=== PATIENT | female | born 1960 | race Caucasian/White ===

== ENCOUNTER 2019-02-17 14:41 | Observation (INO) | payer OTHER ==
[2019-02-17] MEDS ORDERED: ONDANSETRON 4 MG/2 ML VIAL IVP STA (14:53)
[2019-02-17] MEDS ORDERED: MORPHINE SULFATE 4 MG/ML SYRINGE IV STA (14:53)
--- NOTE | 2019-02-17 15:13 | ED ---
Abdominal Pain HPI - General Chief Complaint: Abdominal Pain Stated Complaint: Ascites Time Seen by Provider: 02/17/19 14:42 Source: patient, EMS, RN notes reviewed Mode of arrival: ambulatory Limitations: no limitations - History of Present Illness Initial Comments: 58-year-old female presents emergency dept via EMS chief complaint abdominal pain, swelling. Patient has liver cirrhosis from alcohol abuse. Patient was diagnosed in July. Patient has had paracentesis in the past. Patient states that she's had increase in swelling, weight gain. Patient states pain is unbearable. Patient states that she sees terrible flank. Patient denies any fe vers, chills, chest pain or dyspnea at this time she does admit that she felt short of breath yesterday. She has significant leg swelling. - Related Data Allergies Allergy/AdvReac Type Severity Reaction Status Date / Time No Known Allergies Allergy Verified 02/17/19 14:49 Review of Systems ROS Statement: Those systems with pertinent positive or pertinent negative responses have been documented in the HPI. ROS Other: All systems not noted in ROS Statement are negative. Past Medical History Past Medical History: COPD, Liver Disease Additional Past Medical History / Comment(s): Panceatitis History of Any Multi-Drug Resistant Organisms: None Reported Past Surgical History: Section, Orthopedic Surgery Past Psychological History: No Psychological Hx Reported Smoking Status: Current every day smoker Past Alcohol Use History: None Reported Past Drug Use History: None Reported General Exam Limitations: no limitations General appearance: alert, in no apparent distress Head exam: Present: atraumatic, normocephalic, normal inspection Eye exam: Present: normal appearance, PERRL, EOMI. Absent: scleral icterus, conjunctival injection, periorbital swelling Respiratory exam: Present: normal lung sounds bilaterally. Absent: respiratory distress, wheezes, rales, rhonchi, stridor Cardiovascular Exam: Present: regular rate, normal rhythm, normal heart sounds. Absent: systolic murmur, diastolic murmur, rubs, gallop, clicks GI/Abdominal exam: Present: soft, distended, tenderness, normal bowel sounds. Absent: guarding, rebound, rigid Extremities exam: Present: pedal edema Skin exam: Present: warm, dry, intact, normal color. Absent: rash Course Vital Signs 02/17/19 14:46 Temperature 98.5 F Pulse Rate 100 Respiratory 20 Rate Blood Pressure 114/53 O2 Sat by Pulse 99 Oximetry Medical Decision Making - Medical Decision Making Patient labs reveal transaminitis consistent with alcoholic cirrhosis, hyperbilirubinemia. Patient states that this is baseline for her. She does have extensive abdominal ascites. Patient will be admitted for interventional radiologists for paracentesis, further evaluation of lung pleural effusion versus mass. - Lab Data Result diagrams: 02/17/19 15:15 02/17/19 15:15 Lab Results 02/17/19 02/17/19 02/17/19 Range/Units 15:15 15:15 15:15 WBC 7.1 (3.8-10.6) k/uL RBC 3.78 L (3.80-5.40) m/uL Hgb 12.6 (11.4-16.0) gm/dL Hct 37.3 (34.0-46.0) % MCV 98.9 (80.0-100.0) fL MCH 33.3 (25.0-35.0) pg MCHC 33.7 (31.0-37.0) g/dL RDW 14.3 (11.5-15.5) % Plt Count 333 (150-450) k/uL Neutrophils % 67 % Lymphocytes % 21 % Monocytes % 9 % Eosinophils % 1 % Basophils % 1 % Neutrophils # 4.7 (1.3-7.7) k/uL Lymphocytes # 1.5 (1.0-4.8) k/uL Monocytes # 0.6 (0-1.0) k/uL Eosinophils # 0.1 (0-0.7) k/uL Basophils # 0.1 (0-0.2) k/uL PT 15.6 H (9.0-12.0) sec INR 1.6 H (<1.2) APTT 29.6 (22.0-30.0) sec Sodium 133 L (137-145) mmol/L Potassium 4.2 (3.5-5.1) mmol/L Chloride 105 (98-107) mmol/L Carbon Dioxide 19 L (22-30) mmol/L Anion Gap 9 mmol/L BUN 8 (7-17) mg/dL Creatinine 0.61 (0.52-1.04) mg/dL Est GFR (CKD-EPI)AfAm >90 (>60 ml/min/1.73 sqM) Est GFR (CKD-EPI)NonAf >90 (>60 ml/min/1.73 sqM) Glucose 57 L (74-99) mg/dL Calcium 8.5 (8.4-10.2) mg/dL Magnesium 1.4 L (1.6-2.3) mg/dL Total Bilirubin 3.0 H (0.2-1.3) mg/dL AST 63 H (14-36) U/L ALT 25 (4-34) U/L Alkaline Phosphatase 145 H (38-126) U/L Total Protein 8.4 H (6.3-8.2) g/dL Albumin 2.5 L (3.5-5.0) g/dL Amylase 46 (30-110) U/L Lipase 74 (23-300) U/L Urine Color Urine Appearance (Clear) Urine pH (5.0-8.0) Ur Specific [place] (1.001-1.035) Urine Protein (Negative) Urine Glucose (UA) (Negative) Urine Ketones (Negative) Urine Blood (Negative) Urine Nitrite (Negative) Urine Bilirubin (Negative) Urine Urobilinogen (<2.0) mg/dL Ur Leukocyte Esterase (Negative) Urine RBC (0-5) /hpf Urine WBC (0-5) /hpf Ur Squamous Epith Cells (0-4) /hpf Urine Bacteria (None) /hpf Hyaline Casts (0-2) /lpf Urine Mucus (None) /hpf 02/17/19 Range/Units 15:15 WBC (3.8-10.6) k/uL RBC (3.80-5.40) m/uL Hgb (11.4-16.0) gm/dL Hct (34.0-46.0) % MCV (80.0-100.0) fL MCH (25.0-35.0) pg MCHC (31.0-37.0) g/dL RDW (11.5-15.5) % Plt Count (150-450) k/uL Neutrophils % % Lymphocytes % % Monocytes % % Eosinophils % % Basophils % % Neutrophils # (1.3-7.7) k/uL Lymphocytes # (1.0-4.8) k/uL Monocytes # (0-1.0) k/uL Eosinophils # (0-0.7) k/uL Basophils # (0-0.2) k/uL PT (9.0-12.0) sec INR (<1.2) APTT (22.0-30.0) sec Sodium (137-145) mmol/L Potassium (3.5-5.1) mmol/L Chloride (98-107) mmol/L Carbon Dioxide (22-30) mmol/L Anion Gap mmol/L BUN (7-17) mg/dL Creatinine (0.52-1.04) mg/dL Est GFR (CKD-EPI)AfAm (>60 ml/min/1.73 sqM) Est GFR (CKD-EPI)NonAf (>60 ml/min/1.73 sqM) Glucose (74-99) mg/dL Calcium (8.4-10.2) mg/dL Magnesium (1.6-2.3) mg/dL Total Bilirubin (0.2-1.3) mg/dL AST (14-36) U/L ALT (4-34) U/L Alkaline Phosphatase (38-126) U/L Total Protein (6.3-8.2) g/dL Albumin (3.5-5.0) g/dL Amylase (30-110) U/L Lipase (23-300) U/L Urine Color Yellow Urine Appearance Cloudy H (Clear) Urine pH 5.5 (5.0-8.0) Ur Specific [place] 1.016 (1.001-1.035) Urine Protein Trace H (Negative) Urine Glucose (UA) Negative (Negative) Urine Ketones 1+ H (Negative) Urine Blood Negative (Negative) Urine Nitrite Negative (Negative) Urine Bilirubin Negative (Negative) Urine Urobilinogen 2.0 (<2.0) mg/dL Ur Leukocyte Esterase Small H (Negative) Urine RBC 1 (0-5) /hpf Urine WBC 8 H (0-5) /hpf Ur Squamous Epith Cells 20 H (0-4) /hpf Urine Bacteria Rare H (None) /hpf Hyaline Casts 28 H (0-2) /lpf Urine Mucus Moderate H (None) /hpf Disposition Clinical Impression: Alcoholic cirrhosis of liver with ascites, Pleural effusion Disposition: ADMITTED IP TO THIS [facility] Condition: Fair Referrals: Jazlyn Donnelly MD [Primary Care Provider] - 1-2 days
--- NOTE | 2019-02-17 15:46 | XR ---
EXAMINATION TYPE: XR chest 2V DATE OF EXAM: 02/17/2019 COMPARISON: NONE HISTORY: Shortness of breath TECHNIQUE: Frontal and lateral views of the chest are obtained. FINDINGS: Scattered senescent parenchymal changes noted. Hyperinflation compatible with COPD. There is evidence of moderate size left lower lobe opacity which may reflect infiltrate and/or atelec tasis as well as pleural effusion. Underlying mass is not excluded. Clinical correlation and follow-u p until resolution is advised. Heart size is stable. Mediastinal structures are stable and grossly unremarkable. No evidence for hilar prominence. Degenerative changes dorsal spine. IMPRESSION: 1. There is evidence of moderate size left lower lobe opacity which may reflect infiltrate and/or ate lectasis as well as pleural effusion. Underlying mass is not excluded. Clinical correlation and follo w-up until resolution is advised.
[2019-02-17 16:48] LABS: Appearance,Urine Cloudy (Clear); Bacteria,Urine Rare /hpf; Bilirubin,Urine Negative (Negative); Blood,Urine Negative (Negative); Color,Urine Yellow; Glucose,Urine (UA) Negative (Negative); Hyaline Casts,Urine 28 /lpf (0-2); Ketones,Urine 1+ (Negative); Leukocyte Esterase,Urine Small (Negative); Mucus,Urine Moderate /hpf; Nitrite,Urine Negative (Negative); PH, Urine 5.5 (5.0-8.0); Protein,Urine Trace (Negative); RBC,Urine 1 /hpf (0-5); Specific Gravity,Urine 1.016 (1.001-1.035); Squamous Epithelial Cell,Urine 20 /hpf (0-4); WBC,Urine 8 /hpf (0-5)
[2019-02-17 16:51] LABS: ALT 25 U/L (4-34); AST 63 U/L (14-36); African American GFR (CKD) >90 (>60 ml/min/1.73 sqM); Albumin 2.5 g/dL (3.5-5.0); Alkaline Phosphatase 145 U/L (38-126); Amylase 46 U/L (30-110); Anion Gap 9 mmol/L; Blood Urea Nitrogen 8 mg/dL (7-17); Calcium 8.5 mg/dL (8.4-10.2); Carbon Dioxide 19 mmol/L (22-30); Chloride 105 mmol/L (98-107); Glucose 57 mg/dL (74-99); INR 1.6 (<1.2); Magnesium 1.4 mg/dL (1.6-2.3); Non-African American GFR(CKD) >90 (>60 ml/min/1.73 sqM); Partial Thromboplastin Time 29.6 sec (22.0-30.0); Potassium 4.2 mmol/L (3.5-5.1); Prothrombin Time 15.6 sec (9.0-12.0); Sodium 133 mmol/L (137-145); Total Protein 8.4 g/dL (6.3-8.2)
[2019-02-17 16:58] LABS: Basophils # (A) 0.1 k/uL (0-0.2); Basophils % (A) 1 %; Eosinophils # (A) 0.1 k/uL (0-0.7); Eosinophils % (A) 1 %; HCT 37.3 % (34.0-46.0); HGB 12.6 gm/dL (11.4-16.0); Lymphocytes # (A) 1.5 k/uL (1.0-4.8); Lymphocytes % (A) 21 %; MCH 33.3 pg (25.0-35.0); MCHC 33.7 g/dL (31.0-37.0); MCV 98.9 fL (80.0-100.0); Mean Platelet Volume 7.3; Monocytes # (A) 0.6 k/uL (0-1.0); Monocytes % (A) 9 %; Neutrophils # (A) 4.7 k/uL (1.3-7.7); Neutrophils % (A) 67 %; Platelet Count 333 k/uL (150-450); RBC 3.78 m/uL (3.80-5.40); RDW 14.3 % (11.5-15.5); WBC 7.1 k/uL (3.8-10.6)
[2019-02-17] MEDS ORDERED: NALOXONE 0.4 MG/ML 1 ML VIAL IV PRN (17:04)
[2019-02-17] MEDS ORDERED: MORPHINE SULFATE 4 MG/ML SYRINGE IV PRN (17:04)
[2019-02-17 18:02] LABS: Glucose,Whole Blood 79 mg/dL (75-99)
--- NOTE | 2019-02-17 18:14 | US ---
EXAMINATION TYPE: US chest DATE OF EXAM: 02/17/2019 COMPARISON: CLINICAL HISTORY: effusion,thoracentesis. Pleural effusion TECHNIQUE: Targeted ultrasound of the posterior lower bilateral hemithoraces EXAM MEASUREMENTS: Left Pleural Effusion pocket size: 7.0 cm Left skin surface to fluid distance: 1.4 cm Right side NOT marked for possible thoracentesis outside the dept due to no fluid visualized. Left side marked for possible thoracentesis outside the dept. Pulmonologists are able to review the images in the patient?s EMR. IMPRESSIONS: There is demonstration of a moderate-sized left pleural effusion.
[2019-02-17] MEDS ORDERED: FLUTICASONE 50MCG/SPRAY NASAL 16GM EA NOSTRIL PRN (20:38)
[2019-02-17] MEDS ORDERED: ALBUTEROL NEBULIZED 2.5 MG/3 ML INHALATION PRN (20:38)
[2019-02-17] MEDS ORDERED: ONDANSETRON 4 MG TAB PO PRN (20:38)
[2019-02-17] MEDS ORDERED: LACTULOSE 20 GM/30 ML CUP PO PRN (20:38)
[2019-02-17] MEDS: HYDROmorphone 0.5 MG/0.5 ML SYRINGE IVP PRN (22:58)
[2019-02-17] MEDS: levETIRAcetam ORAL SOLN 500 MG/5 ML CUP PO SCH (22:58)
[2019-02-18] MEDS: LIPASE 5,000/PROTEASE 17,000/AMYLASE 24,000 PO SCH ×3 (08:14→17:24)
[2019-02-18] MEDS: CLOPIDOGREL 75 MG TAB PO SCH (08:14)
[2019-02-18] MEDS: levETIRAcetam ORAL SOLN 500 MG/5 ML CUP PO SCH ×2 (08:15→20:27)
[2019-02-18] MEDS: PYRIDOXINE 50 MG TAB PO SCH (08:16)
[2019-02-18] MEDS: HYDROmorphone 0.5 MG/0.5 ML SYRINGE IVP PRN ×4 (08:16→20:26)
[2019-02-18] MEDS: PANTOPRAZOLE 40 MG TABLET PO SCH (08:16)
[2019-02-18] MEDS: MAGNESIUM OXIDE 400 MG TAB PO SCH (08:16)
[2019-02-18] MEDS: POTASSIUM CHLORIDE ER 20 MEQ TAB.ER PO SCH (08:16)
[2019-02-18] MEDS: ALBUTEROL NEBULIZED 2.5 MG/3 ML INHALATION SCH ×3 (08:42→20:48)
[2019-02-18] MEDS ORDERED: FUROSEMIDE 20 MG TAB PO SCH (09:00)
[2019-02-18] MEDS ORDERED: SPIRONOLACTONE 25 MG TAB PO SCH (09:00)
[2019-02-18] MEDS: IPRATROPIUM 0.5 MG/2.5 ML NEBU INHALATION SCH ×4 (09:01→20:48)
[2019-02-18] MEDS: FORMOTEROL FUMARATE 20 MCG/2 ML NEBU INHALATION SCH ×2 (09:01→20:48)
[2019-02-18] MEDS: IPRATROPIUM-ALBUTEROL 3 ML NEB INHALATION SCH (21:09)
[2019-02-18] MEDS ORDERED: FUROSEMIDE 80 MG TAB PO SCH (21:15)
--- NOTE | 2019-02-18 21:17 | P.HPIM ---
History of Present Illness H&P Date: 02/18/19 Chief Complaint: Distended abdomen History of presenting complaint: This is a pleasant 58-year-old patient who follows with Dr. Rosalina Donnelly. Chronic stable medical conditions include COPD, seizure disorder, coronary artery disease with a history of VT,. Patient has a diagnosis of alcohol induced cirrhosis. Follows with [facility]. Patient due to get a little stronger donor list in March. Patient was heavy alcohol drinker up to go 6 months ago. Patient now continues to smoke about less than a pack a day. Patient presents with weight gain abdominal distention edema shortness of breath. Also some wheezing. Patient's creatinine to smoke cigarettes. No fever no chills. No abdominal pain. Having bowel movements. Review of systems: GEN.: Tired EYES: None HEENT: None NECK: None RESPIRATORY: [As above CARDIOVASCULAR: None GASTROINTESTINAL: None GENITOURINARY: None MUSCULOSKELETAL: None LYMPHATICS: None HEMATOLOGICAL: None PSYCHIATRY: None NEUROLOGICAL: None Social history: Did heavy alcohol drinking close to 40 years. Stopped 6 months ago. Smoking for many years down to less than a pack a day. Lives with her daughter. Physical examination: VITAL SIGNS: 98.5, 100, 20, 11 4/53, 99% room air upon presentation GENERAL: BMI 23.5, laying in bed a bit tired., Spider nevi on the chest wall and some bruising EYES: Pupils equal. Conjunctiva palel. HEENT: External appearance of nose and ears normal, oral cavity grossly normal. NECK: JVD not raised; masses not palpable. HEART: [First and second heart sounds are normal; edema present. LUNGS: Respiratory rate increased, some wheezing decreased breath sounds at the bases. ABDOMEN: Soft, distended, dullness in the flanks nontender, liver spleen not palpable, no masses palpable. PSYCH: Alert and oriented x3; mood and affect normal. NEUROLOGICAL: Cranial nerves grossly intact; no facial asymmetry, power and sensation grossly intact. LYMPHATICS: No lymph nodes palpable in the axilla and neck INVESTIGATIONS, reviewed in the clinical context: White count 7.1 hemoglobin 12.6 platelets 333 pro time 15.6 potassium 4.2 creatinine 0.61 Total bilirubin 3 AST 63 albumin 2.5 Chest ultrasound shows left pleural effusion Chest x-ray left-sided possible pleural effusion Assessment: -Acute COPD exacerbation in a current smoker -Chronic nicotine dependence patient cigarette smoker -Sepsis cirrhosis secondary to alcoholism -Hypoalbuminemia secondary to cirrhosis -Auto anticoagulated due to cirrhosis -Ascites, large due to cirrhosis, but no respiratory compromise -Suspect underlying portal hypertension - Plan: Patient does not have tense ascites. We'll try there is in the patient. The patient Aldactone 100. Twice a day and Lasix 40 mg IV every 8 for 24 hours. Strict I's and O's. Low-sodium diet. Fluid restriction 1500 mL a day. Also start the patient on nebulized bronchodilators. Care was discussed with the patient. Questions were answered. Smoke cessation counseling: This was done with the patient. Nicotine patch is being given. More than 3 minutes was spent for this Past Medical History Past Medical History: COPD, Liver Disease, Myocardial Infarction (VT), Seizure Disorder Additional Past Medical History / Comment(s): Panceatitis, seizure (last one 11/2018), VT (11/2018), sepsis, TIA/CVA x2 (2013, nov 2018), [place], ascites, cirrhosis, liver failure transplant list in march 2019, quit drinking july 2018 (pt states she has had a problem with alcohol abuse since she was 17 years old) Last Myocardial Infarction Date:: 11/2018 History of Any Multi-Drug Resistant Organisms: None Reported Past Surgical History: Section, Heart Catheterization, Orthopedic Surgery Additional Past Surgical History / Comment(s): heart cath 11/2018, paracentesis x3 since july 2018, left arm fracture repair Past Anesthesia/Blood Transfusion Reactions: No Reported Reaction Past Psychological History: Anxiety Smoking Status: Current every day smoker Past Alcohol Use History: Abuse, Heavy Additional Past Alcohol Use History / Comment(s): quit drinking july 2018 (pt states she has had a problem with alcohol abuse since she was 17 years old) Past Drug Use History: None Reported - Past Family History Mother Family Medical History: Cancer Additional Family Medical History / Comment(s): uterine CA Father Family Medical History: Myocardial Infarction (VT) Additional Family Medical History / Comment(s): Medications and Allergies Home Medications Medication Instructions Recorded Confirmed Type Albuterol Inhaler [Ventolin Hfa 2 puff INHALATION RT-Q4H PRN 02/17/19 02/17/19 History Inhaler] Albuterol Nebulized [Ventolin 2.5 mg INHALATION RT-TID 02/17/19 02/17/19 History Nebulized] Clopidogrel [Plavix] 75 mg PO DAILY 02/17/19 02/17/19 History Fluticasone Nasal [place] [Flonase 1 spray EA NOSTRIL Q6H PRN 02/17/19 02/17/19 History Nasal [place]] Furosemide [Lasix] 20 mg PO DAILY 02/17/19 02/17/19 History Lactulose 20 gm PO BID PRN 02/17/19 02/17/19 History Lipase/Protease/Amylase [Zenpep Dr 5,000 unit PO AC-TID 02/17/19 02/17/19 History 5,000 Unit Capsule] Magnesium Oxide [Mag-Ox] 400 mg PO DAILY 02/17/19 02/17/19 History Ondansetron [Zofran] 4 - 8 mg PO BID PRN 02/17/19 02/17/19 History Pantoprazole [Protonix] 40 mg PO DAILY 02/17/19 02/17/19 History Potassium Chloride [Klor-Con 20] 20 meq PO DAILY 02/17/19 02/17/19 History Pyridoxine HCl (Vitamin B6) 100 mg PO DAILY 02/17/19 02/17/19 History [Vitamin B-6] Salmeterol Xinafoate [Serevent 1 puff INHALATION RT-BID 02/17/19 02/17/19 History Diskus] Spironolactone 50 mg PO DAILY 02/17/19 02/17/19 History Umeclidinium [place] [Incruse 1 puff INHALATION RT-DAILY 02/17/19 02/17/19 History Ellipta] levETIRAcetam [Keppra Oral 750 mg PO BID 02/17/19 02/17/19 History Solution] traMADol HCL [Ultram] 100 mg PO BID PRN 02/17/19 02/17/19 History Allergies Allergy/AdvReac Type Severity Reaction Status Date / Time No Known Allergies Allergy Verified 02/17/19 18:57 Physical Exam Vitals: Vital Signs Temp Pulse Pulse Resp BP BP Pulse Ox 02/18/19 09:22 80 02/18/19 08:56 80 02/18/19 08:55 80 02/18/19 08:45 80 02/18/19 06:29 98.0 F 105 H 20 107/65 96 02/17/19 22:44 20 02/17/19 20:23 97.7 F 94 22 138/76 98 02/17/19 18:02 98.6 F 96 20 121/58 99 02/17/19 14:46 98.5 F 100 20 114/53 99 Intake and Output 02/17/19 02/18/19 02/18/19 22:59 06:59 14:59 Other: Voiding Method Toilet # Voids 1 0 Weight 68.039 kg Results CBC & Chem 7: 02/17/19 15:15 02/17/19 15:15 Labs: Abnormal Lab Results - Last 24 Hours (Table) 02/17/19 02/17/19 02/17/19 Range/Units 15:15 15:15 15:15 RBC 3.78 L (3.80-5.40) m/uL PT 15.6 H (9.0-12.0) sec INR 1.6 H (<1.2) Sodium 133 L (137-145) mmol/L Carbon Dioxide 19 L (22-30) mmol/L Glucose 57 L (74-99) mg/dL Magnesium 1.4 L (1.6-2.3) mg/dL Total Bilirubin 3.0 H (0.2-1.3) mg/dL AST 63 H (14-36) U/L Alkaline Phosphatase 145 H (38-126) U/L Total Protein 8.4 H (6.3-8.2) g/dL Albumin 2.5 L (3.5-5.0) g/dL Urine Appearance (Clear) Urine Protein (Negative) Urine Ketones (Negative) Ur Leukocyte Esterase (Negative) Urine WBC (0-5) /hpf Ur Squamous Epith Cells (0-4) /hpf Urine Bacteria (None) /hpf Hyaline Casts (0-2) /lpf Urine Mucus (None) /hpf 02/17/19 Range/Units 15:15 RBC (3.80-5.40) m/uL PT (9.0-12.0) sec INR (<1.2) Sodium (137-145) mmol/L Carbon Dioxide (22-30) mmol/L Glucose (74-99) mg/dL Magnesium (1.6-2.3) mg/dL Total Bilirubin (0.2-1.3) mg/dL AST (14-36) U/L Alkaline Phosphatase (38-126) U/L Total Protein (6.3-8.2) g/dL Albumin (3.5-5.0) g/dL Urine Appearance Cloudy H (Clear) Urine Protein Trace H (Negative) Urine Ketones 1+ H (Negative) Ur Leukocyte Esterase Small H (Negative) Urine WBC 8 H (0-5) /hpf Ur Squamous Epith Cells 20 H (0-4) /hpf Urine Bacteria Rare H (None) /hpf Hyaline Casts 28 H (0-2) /lpf Urine Mucus Moderate H (None) /hpf Thrombosis Risk Factor Assmnt - Choose All That Apply Any of the Below Risk Factors Present?: Yes Each Factor Represents 1 point: Age 41-60 years Thrombosis Risk Factor Assessment Total Risk Factor Score: 1 Thrombosis Risk Factor Assessment Level: Low Risk
[2019-02-18] MEDS: NICOTINE 21MG/24HR PATCH TRANSDERM SCH (21:35)
[2019-02-18] MEDS: traMADol 50 MG TAB PO PRN (21:35)
[2019-02-18] MEDS: SPIRONOLACTONE 25 MG TAB PO SCH (21:35)
[2019-02-18] MEDS: FUROSEMIDE 10 MG/ML 4 ML VIAL IV SCH (21:35)
[2019-02-19] MEDS: traMADol 50 MG TAB PO PRN (02:51)
[2019-02-19] MEDS: FUROSEMIDE 10 MG/ML 4 ML VIAL IV SCH ×2 (05:54→14:45)
[2019-02-19] MEDS: IPRATROPIUM-ALBUTEROL 3 ML NEB INHALATION SCH ×3 (07:18→15:58)
[2019-02-19] MEDS: FORMOTEROL FUMARATE 20 MCG/2 ML NEBU INHALATION SCH (07:18)
[2019-02-19 07:45] LABS: African American GFR (CKD) >90 (>60 ml/min/1.73 sqM); Anion Gap 10 mmol/L; Blood Urea Nitrogen 8 mg/dL (7-17); Calcium 8.4 mg/dL (8.4-10.2); Carbon Dioxide 20 mmol/L (22-30); Chloride 103 mmol/L (98-107); Glucose 115 mg/dL (74-99); Non-African American GFR(CKD) >90 (>60 ml/min/1.73 sqM); Potassium 3.6 mmol/L (3.5-5.1); Sodium 133 mmol/L (137-145)
[2019-02-19] MEDS: levETIRAcetam ORAL SOLN 500 MG/5 ML CUP PO SCH (08:01)
[2019-02-19] MEDS: PANTOPRAZOLE 40 MG TABLET PO SCH (08:02)
[2019-02-19] MEDS: POTASSIUM CHLORIDE ER 20 MEQ TAB.ER PO SCH (08:02)
[2019-02-19] MEDS: SPIRONOLACTONE 25 MG TAB PO SCH (08:02)
[2019-02-19] MEDS: MAGNESIUM OXIDE 400 MG TAB PO SCH (08:02)
[2019-02-19] MEDS: NICOTINE 21MG/24HR PATCH TRANSDERM SCH (08:02)
[2019-02-19] MEDS: CLOPIDOGREL 75 MG TAB PO SCH (08:02)
[2019-02-19] MEDS: LIPASE 5,000/PROTEASE 17,000/AMYLASE 24,000 PO SCH ×2 (08:02→13:15)
[2019-02-19] MEDS: PYRIDOXINE 50 MG TAB PO SCH (08:11)
--- NOTE | 2019-02-19 09:03 | P.CONS ---
History of Present Illness - Reason for Consult Consult date: 02/18/19 Cirrhosis Requesting physician: Khanh Arreaga - Chief Complaint Abdominal pain and distension - History of Present Illness 58-year-old female with multiple medical comorbidities including COPD, seizure disorder, coronary artery disease, prior history of alcohol abuse and decompensated alcoholic cirrhosis who presented to the hospital with complaints of abdominal pain and distention. The patient has a known history of decompensated alcohol cirrhosis for which she has required 3 paracentesis in the past and has been maintained on diuretic therapy in the outpatient setting. She denies any history of variceal bleed and is on treatment with lactulose for encephalopathy. She reports recently being seen in the gastroenterology clinic with Yareli GARCIAS at which time she had complained about frequency of urination interfering with her life and had modifications of her diuretic therapy. She reports compliance with Lasix 20 mg daily and Aldactone 50 mg daily. However she states that over the past few weeks she has had increasing abdominal distention and lower extremity swelling. Symptoms were associated with pain in the abdomen. She also reported shortness of breath and weight gain. She presented to the hospital for further evaluation. The patient states she has been abstinent from alcohol since July. She reports compliance with a low- sodium diet. Review of Systems REVIEW OF SYSTEMS: CONSTITUTIONAL: Denies any fevers, chills, but does report weight gain and fatigue. CARDIOVASCULAR: Denies any chest pain, palpitations high or low blood pressures RESPIRATORY: Denies any hemoptysis or cough, but does report shortness of breath. GENITOURINARY: No dysuria or hematuria. MUSCULOSKELETAL: No weakness reported. SKIN: Denies any new rashes or lesions, jaundice or pallor. PSYCHIATRIC: Denies any depression or anxiety, prior history of alcohol abuse abstinent since July of this year. NEUROLOGY: Denies headache, denies any new focal deficits. EARS/NOSE/THROAT: No recent hearing change, congestion, nasal discharge or sore throat. EYES: No pain in eyes, discharge or change in vision. GASTROINTESTINAL: As per HPI. Past Medical History Past Medical History: COPD, Liver Disease, Myocardial Infarction ([place]), Seizure Disorder Additional Past Medical History / Comment(s): Panceatitis, seizure (last one 11/2018), [place] (11/2018), sepsis, TIA/CVA x2 (2013, nov 2018), [place], ascites, cirrhosis, liver failure transplant list in march 2019, quit drinking july 2018 (pt states she has had a problem with alcohol abuse since she was 17 years old) Last Myocardial Infarction Date:: 11/2018 History of Any Multi-Drug Resistant Organisms: None Reported Past Surgical History: Section, Heart Catheterization, Orthopedic Surgery Additional Past Surgical History / Comment(s): heart cath 11/2018, paracentesis x3 since july 2018, left arm fracture repair Past Anesthesia/Blood Transfusion Reactions: No Reported Reaction Past Psychological History: Anxiety Smoking Status: Current every day smoker Past Alcohol Use History: Abuse, Heavy Additional Past Alcohol Use History / Comment(s): quit drinking july 2018 (pt states she has had a problem with alcohol abuse since she was 17 years old) Past Drug Use History: None Reported - Past Family History Mother Family Medical History: Cancer Additional Family Medical History / Comment(s): uterine CA Father Family Medical History: Myocardial Infarction ([place]) Additional Family Medical History / Comment(s): Medications and Allergies Home Medications Medication Instructions Recorded Confirmed Type Albuterol Inhaler [Ventolin Hfa 2 puff INHALATION RT-Q4H PRN 02/17/19 02/17/19 History Inhaler] Albuterol Nebulized [Ventolin 2.5 mg INHALATION RT-TID 02/17/19 02/17/19 History Nebulized] Clopidogrel [Plavix] 75 mg PO DAILY 02/17/19 02/17/19 History Fluticasone Nasal [place] [Flonase 1 spray EA NOSTRIL Q6H PRN 02/17/19 02/17/19 History Nasal [place]] Furosemide [Lasix] 20 mg PO DAILY 02/17/19 02/17/19 History Lactulose 20 gm PO BID PRN 02/17/19 02/17/19 History Lipase/Protease/Amylase [Zenpep Dr 5,000 unit PO AC-TID 02/17/19 02/17/19 History 5,000 Unit Capsule] Magnesium Oxide [Mag-Ox] 400 mg PO DAILY 02/17/19 02/17/19 History Ondansetron [Zofran] 4 - 8 mg PO BID PRN 02/17/19 02/17/19 History Pantoprazole [Protonix] 40 mg PO DAILY 02/17/19 02/17/19 History Potassium Chloride [Klor-Con 20] 20 meq PO DAILY 02/17/19 02/17/19 History Pyridoxine HCl (Vitamin B6) 100 mg PO DAILY 02/17/19 02/17/19 History [Vitamin B-6] Salmeterol Xinafoate [Serevent 1 puff INHALATION RT-BID 02/17/19 02/17/19 History Diskus] Spironolactone 50 mg PO DAILY 02/17/19 02/17/19 History Umeclidinium [place] [Incruse 1 puff INHALATION RT-DAILY 02/17/19 02/17/19 History Ellipta] levETIRAcetam [Keppra Oral 750 mg PO BID 02/17/19 02/17/19 History Solution] traMADol HCL [Ultram] 100 mg PO BID PRN 02/17/19 02/17/19 History Allergies Allergy/AdvReac Type Severity Reaction Status Date / Time No Known Allergies Allergy Verified 02/17/19 18:57 Physical Exam Vitals: Vital Signs Temp Pulse Pulse Resp BP BP Pulse Ox 02/18/19 09:22 80 02/18/19 08:56 80 02/18/19 08:55 80 02/18/19 08:45 80 02/18/19 06:29 98.0 F 105 H 20 107/65 96 02/17/19 22:44 20 02/17/19 20:23 97.7 F 94 22 138/76 98 02/17/19 18:02 98.6 F 96 20 121/58 99 02/17/19 14:46 98.5 F 100 20 114/53 99 Intake and Output 02/17/19 02/18/19 02/18/19 22:59 06:59 14:59 Other: Voiding Method Toilet # Voids 1 0 Weight 68.039 kg On physical examination, patient appears comfortable in no apparent distress. HEAD: Normocephalic, atraumatic. EYES: No scleral icterus. No conjunctival injection. MOUTH: No lesions, tongue midline. NECK: Trachea midline, no gross abnormalities. CHEST: Clear to auscultation with coarse respiratory noises in the left lower lung field. HEART: Regular rate and rhythm. ABDOMEN: Soft, moderately distended with positive fluid wave TTP. Bowel sounds are positive. No organomegaly. No guarding or rigidity. EXTREMITIES: Bilateral 2+ pedal edema. SKIN: No rashes, no jaundice. NEUROLOGIC: Alert and oriented x3. No focal deficits. No asterixis noted. Results CBC & Chem 7: 02/17/19 15:15 02/19/19 07:12 Labs: Abnormal Lab Results - Last 24 Hours (Table) 02/17/19 02/17/19 02/17/19 Range/Units 15:15 15:15 15:15 RBC 3.78 L (3.80-5.40) m/uL PT 15.6 H (9.0-12.0) sec INR 1.6 H (<1.2) Sodium 133 L (137-145) mmol/L Carbon Dioxide 19 L (22-30) mmol/L Glucose 57 L (74-99) mg/dL Magnesium 1.4 L (1.6-2.3) mg/dL Total Bilirubin 3.0 H (0.2-1.3) mg/dL AST 63 H (14-36) U/L Alkaline Phosphatase 145 H (38-126) U/L Total Protein 8.4 H (6.3-8.2) g/dL Albumin 2.5 L (3.5-5.0) g/dL Urine Appearance (Clear) Urine Protein (Negative) Urine Ketones (Negative) Ur Leukocyte Esterase (Negative) Urine WBC (0-5) /hpf Ur Squamous Epith Cells (0-4) /hpf Urine Bacteria (None) /hpf Hyaline Casts (0-2) /lpf Urine Mucus (None) /hpf 02/17/19 Range/Units 15:15 RBC (3.80-5.40) m/uL PT (9.0-12.0) sec INR (<1.2) Sodium (137-145) mmol/L Carbon Dioxide (22-30) mmol/L Glucose (74-99) mg/dL Magnesium (1.6-2.3) mg/dL Total Bilirubin (0.2-1.3) mg/dL AST (14-36) U/L Alkaline Phosphatase (38-126) U/L Total Protein (6.3-8.2) g/dL Albumin (3.5-5.0) g/dL Urine Appearance Cloudy H (Clear) Urine Protein Trace H (Negative) Urine Ketones 1+ H (Negative) Ur Leukocyte Esterase Small H (Negative) Urine WBC 8 H (0-5) /hpf Ur Squamous Epith Cells 20 H (0-4) /hpf Urine Bacteria Rare H (None) /hpf Hyaline Casts 28 H (0-2) /lpf Urine Mucus Moderate H (None) /hpf Chest x-ray: report reviewed (Moderate left lower lobe effusion on chest x-ray) Assessment and Plan (1) Alcoholic cirrhosis of liver with ascites Narrative/Plan: 58-year-old female with decompensated alcoholic cirrhosis with ascites. Patient reports compliance with sodium restricted diet but had cut back on diuretic therapy due to frequency of urination interfering with lifestyle. She presented to the hospital with complaints of shortness of breath, abdominal swelling and distention, and associated weight gain. Currently the patient is being aggressively diuresed with IV Lasix and Aldactone. She may benefit from paracentesis, for which she has required 3 in the past, however she is receiving Plavix therapy which will need to be held. Current Visit: Yes Status: Acute Code(s): K70.31 - ALCOHOLIC CIRRHOSIS OF LIVER WITH ASCITES SNOMED Code(s): 507445072 (2) Pleural effusion Current Visit: Yes Status: Acute Code(s): J90 - PLEURAL EFFUSION, NOT ELSEWHERE CLASSIFIED SNOMED Code(s): 78639876 Plan: Supportive care Okay for sodium restricted diet Continue IV Lasix and Aldactone therapy We will consider paracentesis if patient does not diuresis appropriately with medical therapy, Plavix will need to be held prior to the paracentesis Alcohol abstinence Continue lactulose, titrate for 2-3 bowel movements daily Continue to follow up with gastroenterology after discharge Thank you for allowing us to participate in the care of the patient we will continue to follow
[2019-02-19 14:02] VITALS: BP 98/50; PULSE 102; RESP 20; TEMP 97.7
--- NOTE | 2019-02-19 22:59 | P.DS ---
Providers Date of admission: 02/17/19 18:52 Expected date of discharge: 02/19/19 Attending physician: Khanh Arreaga Consults: 02/17/19 17:07 Consult Physician Routine Consulting Provider: Low Alcaraz Consult Reason/Comments: cirrhosis Do you want consulting provider notified?: Yes Primary care physician: Jazlyn Donnelly [facility] Course: Chief Complaint: Distended abdomen History of presenting complaint: This is a pleasant 58-year-old patient who follows with Dr. Rosalina Donnelly. Chronic stable medical conditions include COPD, seizure disorder, coronary artery disease with a history of [place],. Patient has a diagnosis of alcohol induced cirrhosis. Follows with [facility]. Patient due to get a little stronger donor list in March. Patient was heavy alcohol drinker up to go 6 months ago. Patient now continues to smoke about less than a pack a day. Patient presents with weight gain abdominal distention edema shortness of breath. Also some wheezing. Patient's creatinine to smoke cigarettes. No fever no chills. No abdominal pain. Having bowel movements. admitted with COPD exacerbation and fluid overload from cirrhosis. Treated with bronchodilators. Dose of Aldactone was increased. Given IV Lasix. Put on fluid restriction and low sodium diet. Responded well. Educated. need not felt for paracentesis at this point.patient does follow with GI clinic locally. consultation: Dr. Bravo from GI Physical examination: VITAL SIGNS: 97.7, 102, 20, 98/50, 99% room air GENERAL: looking better, Spider nevi on the chest wall and some bruising EYES: Pupils equal. Conjunctiva pale. HEENT: External appearance of nose and ears normal, oral cavity grossly normal. NECK: JVD not raised; masses not palpable. HEART: [First and second heart sounds are normal; edema decreasedt. LUNGS: Respiratory rate increased, some wheezing decreased breath sounds at the bases. ABDOMEN: Soft, lessdistended, dullness in the flanks nontender, liver spleen not palpable, no masses palpable. PSYCH: Alert and oriented x3; mood and affect normal. INVESTIGATIONS, reviewed in the clinical context: Potassium 3.6 creatinine 0.71 White count 7.1 hemoglobin 12.6 platelets 333 pro time 15.6 Total bilirubin 3 AST 63 albumin 2.5 Chest ultrasound shows left pleural effusion Chest x-ray left-sided possible pleural effusion Assessment: -Acute COPD exacerbation in a current smoker -Chronic nicotine dependence patient cigarette smoker -Sepsis cirrhosis secondary to alcoholism -Hypoalbuminemia secondary to cirrhosis -Auto anticoagulated due to cirrhosis -Ascites, large due to cirrhosis, but no respiratory compromise -Suspect underlying portal hypertension - disposition: Home Patient Condition at Discharge: Stable Plan - Discharge Summary Discharge Rx Participant: No New Discharge Prescriptions: New Spironolactone [Aldactone] 100 mg PO BID #60 tab Nicotine 21Mg/24Hr Patch [Habitrol] 1 patch TRANSDERM DAILY #14 patch Furosemide [Lasix] 40 mg PO BID #60 tablet Continue Pyridoxine HCl (Vitamin B6) [Vitamin B-6] 100 mg PO DAILY traMADol HCL [Ultram] 100 mg PO BID PRN PRN Reason: Pain Salmeterol Xinafoate [Serevent Diskus] 1 puff INHALATION RT-BID levETIRAcetam [Keppra Oral Solution] 750 mg PO BID Magnesium Oxide [Mag-Ox] 400 mg PO DAILY Lactulose 20 gm PO BID PRN PRN Reason: Constipation Umeclidinium [place] [Incruse Ellipta] 1 puff INHALATION RT-DAILY Fluticasone Nasal [place] [Flonase Nasal [place]] 1 spray EA NOSTRIL Q6H PRN PRN Reason: Allergy Symptoms Clopidogrel [Plavix] 75 mg PO DAILY Albuterol Inhaler [Ventolin Hfa Inhaler] 2 puff INHALATION RT-Q4H PRN PRN Reason: Shortness Of Breath Lipase/Protease/Amylase [Zenpep Dr 5,000 Unit Capsule] 5,000 unit PO AC-TID Pantoprazole [Protonix] 40 mg PO DAILY Albuterol Nebulized [Ventolin Nebulized] 2.5 mg INHALATION RT-TID Ondansetron [Zofran] 4 - 8 mg PO BID PRN PRN Reason: Nausea Discontinued Potassium Chloride [Klor-Con 20] 20 meq PO DAILY Furosemide [Lasix] 20 mg PO DAILY Spironolactone 50 mg PO DAILY Discharge Medication List Albuterol Inhaler [Ventolin Hfa Inhaler] 2 puff INHALATION RT-Q4H PRN 02/17/19 [History] Albuterol Nebulized [Ventolin Nebulized] 2.5 mg INHALATION RT-TID 02/17/19 [History] Clopidogrel [Plavix] 75 mg PO DAILY 02/17/19 [History] Fluticasone Nasal [place] [Flonase Nasal [place]] 1 spray EA NOSTRIL Q6H PRN 02/17/19 [History] Lactulose 20 gm PO BID PRN 02/17/19 [History] Lipase/Protease/Amylase [Zenpep Dr 5,000 Unit Capsule] 5,000 unit PO AC-TID 02/17/19 [History] Magnesium Oxide [Mag-Ox] 400 mg PO DAILY 02/17/19 [History] Ondansetron [Zofran] 4 - 8 mg PO BID PRN 02/17/19 [History] Pantoprazole [Protonix] 40 mg PO DAILY 02/17/19 [History] Pyridoxine HCl (Vitamin B6) [Vitamin B-6] 100 mg PO DAILY 02/17/19 [History] Salmeterol Xinafoate [Serevent Diskus] 1 puff INHALATION RT-BID 02/17/19 [History] Umeclidinium [place] [Incruse Ellipta] 1 puff INHALATION RT-DAILY 02/17/19 [History] levETIRAcetam [Keppra Oral Solution] 750 mg PO BID 02/17/19 [History] traMADol HCL [Ultram] 100 mg PO BID PRN 02/17/19 [History] Furosemide [Lasix] 40 mg PO BID #60 tablet 02/19/19 [Rx] Nicotine 21Mg/24Hr Patch [Habitrol] 1 patch TRANSDERM DAILY #14 patch 02/19/19 [Rx] Spironolactone [Aldactone] 100 mg PO BID #60 tab 02/19/19 [Rx] Follow up Appointment(s)/Referral(s): Jazlyn Donnelly MD [Primary Care Provider] - 1-2 days Jae Dick PAC [REFERRING] - 1 Week Patient Instructions/Handouts: How to Stop Smoking (DC), Ascites (DC), Fall Prevention (DC), Paracentesis (DC) Activity/Diet/Wound Care/Special Instructions: low sodium diet fluid restriction 2000 cc/day activity as tolerated discuss future paracentesis with jae dick ANALYSIS INTERN. currently taking Plavix PO Discharge Disposition: HOME SELF-CARE
== END 2019-02-19 17:33 | disposition home or self-care (01) ==
LOC: EC 14:41 → 6NMEDSUR 18:52 → INTOOBSV 18:52 → UNDODISIN 02-19 17:33
PROVIDERS: ADMIT Hospitalist; ATTEND Hospitalist
DX: A41.9 Sepsis, unspecified organism (principal); J44.1 Chronic obstructive pulmonary disease with (acute) exacerbation; J90 Pleural effusion, not elsewhere classified; F10.288 Alcohol dependence with other alcohol-induced disorder; F17.210 Nicotine dependence, cigarettes, uncomplicated; K70.31 Alcoholic cirrhosis of liver with ascites; F41.9 Anxiety disorder, unspecified; G40.909 Epilepsy, unspecified, not intractable, without status epilepticus; I25.10 Atherosclerotic heart disease of native coronary artery without angina pectoris; I25.2 Old myocardial infarction; Z79.891 Long term (current) use of opiate analgesic; Z79.02 Long term (current) use of antithrombotics/antiplatelets; Z79.52 Long term (current) use of systemic steroids; Z79.899 Other long term (current) drug therapy; Z86.73 Personal history of transient ischemic attack (TIA), and cerebral infarction without residual deficits; Z87.81 Personal history of (healed) traumatic fracture; Z98.891 History of uterine scar from previous surgery; Z98.890 Other specified postprocedural states; Z80.49 Family history of malignant neoplasm of other genital organs; Z82.49 Family history of ischemic heart disease and other diseases of the circulatory system; Z71.6 Tobacco abuse counseling
CPT/HCPCS: 96376 ×3; 96375 ×3; 96374; 99285; 36415; 94640 ×4; 80053; 80048; 82150; 83690; 83735; 85025; 85610; 85730; 81001; 71046; 76604; G0378 ×3; S4990 ×2; J2270; J1940 ×2; J2405; J1170 ×2

== ENCOUNTER 2019-03-10 13:20 | Inpatient (IN) | payer OTHER ==
[2019-03-10] MEDS ORDERED: HYDROmorphone 0.5 MG/0.5 ML SYRINGE IVP STA ×2 (14:02→15:43)
--- NOTE | 2019-03-10 14:06 | ED ---
Abdominal Pain HPI - General Chief Complaint: Abdominal Pain Stated Complaint: Weakness Time Seen by Provider: 03/10/19 13:55 Source: patient Mode of arrival: EMS Limitations: no limitations - History of Present Illness Initial Comments: Patient is a 58-year-old female history of liver cirrhosis presenting to the emergency department with a chief complaint of increased abdominal pain and swelling. Daughter states the patient has increased swelling bilateral lower extremities although that is her baseline for the most part. She also reports increased swelling in the abdomen. She does have ascites. Daughter also states over the last 1-2 days patient is slightly more confused. Daughter states the patient is getting more jaundiced. Denies any night sweats or chills. Denies any nausea vomiting diarrhea. - Related Data Home Medications Medication Instructions Recorded Confirmed Albuterol Inhaler [Ventolin Hfa 2 puff INHALATION RT-Q4H PRN 02/17/19 02/17/19 Inhaler] Albuterol Nebulized [Ventolin 2.5 mg INHALATION RT-TID 02/17/19 02/17/19 Nebulized] Clopidogrel [Plavix] 75 mg PO DAILY 02/17/19 02/17/19 Fluticasone Nasal [employer] [Flonase 1 spray EA NOSTRIL Q6H PRN 02/17/19 02/17/19 Nasal [employer]] Lactulose 20 gm PO BID PRN 02/17/19 02/17/19 Lipase/Protease/Amylase [Zenpep Dr 5,000 unit PO AC-TID 02/17/19 02/17/19 5,000 Unit Capsule] Magnesium Oxide [Mag-Ox] 400 mg PO DAILY 02/17/19 02/17/19 Ondansetron [Zofran] 4 - 8 mg PO BID PRN 02/17/19 02/17/19 Pantoprazole [Protonix] 40 mg PO DAILY 02/17/19 02/17/19 Pyridoxine HCl (Vitamin B6) 100 mg PO DAILY 02/17/19 02/17/19 [Vitamin B-6] Salmeterol Xinafoate [Serevent 1 puff INHALATION RT-BID 02/17/19 02/17/19 Diskus] Umeclidinium [place] [Incruse 1 puff INHALATION RT-DAILY 02/17/19 02/17/19 Ellipta] levETIRAcetam [Keppra Oral 750 mg PO BID 02/17/19 02/17/19 Solution] traMADol HCL [Ultram] 100 mg PO BID PRN 02/17/19 02/17/19 Previous Rx's Medication Instructions Recorded Furosemide [Lasix] 40 mg PO BID #60 tablet 02/19/19 Nicotine 21Mg/24Hr Patch [Habitrol] 1 patch TRANSDERM DAILY #14 patch 02/19/19 Spironolactone [Aldactone] 100 mg PO BID #60 tab 02/19/19 Allergies Allergy/AdvReac Type Severity Reaction Status Date / Time No Known Allergies Allergy Verified 03/10/19 13:36 Review of Systems ROS Statement: Those systems with pertinent positive or pertinent negative responses have been documented in the HPI. ROS Other: All systems not noted in ROS Statement are negative. Past Medical History Past Medical History: COPD, Liver Disease, Myocardial Infarction ([place]), Seizure Disorder Additional Past Medical History / Comment(s): Panceatitis, seizure (last one 11/2018), [place] (11/2018), sepsis, TIA/CVA x2 (2013, nov 2018), [place] IGLOO, ascites, cirrhosis, liver failure transplant list in march 2019, quit drinking july 2018 (pt states she has had a problem with alcohol abuse since she was 17 years old) Last Myocardial Infarction Date:: 11/2018 History of Any Multi-Drug Resistant Organisms: None Reported Past Surgical History: Section, Heart Catheterization, Orthopedic Surgery Additional Past Surgical History / Comment(s): heart cath 11/2018, paracentesis x3 since july 2018, left arm fracture repair Past Anesthesia/Blood Transfusion Reactions: No Reported Reaction Past Psychological History: Anxiety Smoking Status: Current every day smoker Past Alcohol Use History: Abuse, Heavy Past Drug Use History: None Reported - Past Family History Mother Family Medical History: Cancer Additional Family Medical History / Comment(s): uterine CA Father Family Medical History: Myocardial Infarction ([place]) Additional Family Medical History / Comment(s): General Exam Limitations: no limitations General appearance: alert, in no apparent distress Head exam: Present: atraumatic, normocephalic, normal inspection Eye exam: Present: normal appearance, PERRL, EOMI, scleral icterus Pupils: Present: normal accommodation ENT exam: Present: normal exam, normal oropharynx, mucous membranes moist, TM's normal bilaterally, normal external ear exam Neck exam: Present: normal inspection, full ROM Respiratory exam: Present: normal lung sounds bilaterally Cardiovascular Exam: Present: regular rate, normal rhythm, normal heart sounds GI/Abdominal exam: Present: distended, tenderness, rigid. Absent: guarding, rebound Extremities exam: Present: normal inspection, full ROM, normal capillary refill, pedal edema (+3 pitting edema bilaterally.) Back exam: Present: normal inspection, full ROM Neurological exam: Present: alert, oriented X3 Psychiatric exam: Present: normal affect, normal mood Skin exam: Present: warm, dry, intact, normal color Course Vital Signs 03/10/19 03/10/19 13:32 16:45 Temperature 97.1 F L 97 F L Pulse Rate 106 H 110 H Respiratory 16 18 Rate Blood Pressure 121/75 117/66 O2 Sat by Pulse 100 98 Oximetry Medical Decision Making - Medical Decision Making Patient is a 58-year-old female with history of stage IV liver cirrhosis presenting to emergency Department with chief complaint of abdominal pain and swelling. On exam patient does have ascites and increase in bilateral lower extremity pitting edema. Patient does appear jaundiced and does have scleral icterus. Laboratory workup shows increased ammonia of 120. Patient started on lactulose. Elevation transaminases. Patient will be admitted for further medical management. Patient will be started on Aldactone and lactulose. Neurochecks 3 times a day. Case discussed with Dr. Conroy. Admitting physician is . - Lab Data Result diagrams: 03/10/19 15:18 03/10/19 15:18 Lab Results 03/10/19 03/10/19 03/10/19 Range/Units 15:18 15:18 15:18 WBC 8.1 (3.8-10.6) k/uL RBC 3.33 L (3.80-5.40) m/uL Hgb 10.9 L (11.4-16.0) gm/dL Hct 34.4 (34.0-46.0) % MCV 103.3 H (80.0-100.0) fL MCH 32.6 (25.0-35.0) pg MCHC 31.6 (31.0-37.0) g/dL RDW 14.2 (11.5-15.5) % Plt Count 204 (150-450) k/uL Neutrophils % (Manual) 71 % Band Neutrophils % 2 % Lymphocytes % (Manual) 15 % Monocytes % (Manual) 11 % Eosinophils % (Manual) 1 % Neutrophils # (Manual) 5.90 (1.3-7.7) k/uL Lymphocytes # (Manual) 1.22 (1.0-4.8) k/uL Monocytes # (Manual) 0.89 (0-1.0) k/uL Eosinophils # (Manual) 0.08 (0-0.7) k/uL Nucleated RBCs 0 (0-0) /100 WBC Manual Slide Review Performed Poikilocytosis (manual Present Macrocytosis Slight Target Cells Present Sodium 134 L (137-145) mmol/L Potassium 4.6 (3.5-5.1) mmol/L Chloride 103 (98-107) mmol/L Carbon Dioxide 25 (22-30) mmol/L Anion Gap 6 mmol/L BUN 17 (7-17) mg/dL Creatinine 1.09 H (0.52-1.04) mg/dL Est GFR (CKD-EPI)AfAm 66 (>60 ml/min/1.73 sqM) Est GFR (CKD-EPI)NonAf 57 (>60 ml/min/1.73 sqM) Glucose 109 H (74-99) mg/dL Calcium 8.4 (8.4-10.2) mg/dL Total Bilirubin 3.3 H (0.2-1.3) mg/dL AST 45 H (14-36) U/L ALT 23 (4-34) U/L Alkaline Phosphatase 155 H (38-126) U/L Ammonia 120 H (<30) umol/L Total Protein 8.0 (6.3-8.2) g/dL Albumin 2.3 L (3.5-5.0) g/dL Amylase 34 (30-110) U/L Lipase 83 (23-300) U/L Disposition Clinical Impression: Ascites, Hepatic encephalopathy Disposition: ADMITTED IP TO THIS HOSP Condition: Fair Instructions (If sedation given, give patient instructions): Ascites (ED) Additional Instructions: Patient will be admitted Is patient prescribed a controlled substance at d/c from ED?: No Referrals: Jazlyn Donnelly MD [Primary Care Provider] - 1-2 days Time of Disposition: 17:19
[2019-03-10] MEDS ORDERED: HYDROmorphone 0.5 MG/0.5 ML SYRINGE IM STA (14:28)
[2019-03-10] MEDS ORDERED: LACTULOSE 20 GM/30 ML CUP PO ONE (14:30)
[2019-03-10 15:46] LABS: Albumin 2.3 g/dL (3.5-5.0); Calcium 8.4 mg/dL (8.4-10.2); Potassium 4.6 mmol/L (3.5-5.1); Total Bilirubin 3.3 mg/dL (0.2-1.3)
[2019-03-10 15:52] LABS: HCT 34.4 % (34.0-46.0); HGB 10.9 gm/dL (11.4-16.0); MCH 32.6 pg (25.0-35.0); MCHC 31.6 g/dL (31.0-37.0); MCV 103.3 fL (80.0-100.0); Macrocytosis Slight; Mean Platelet Volume 7.4; Platelet Count 204 k/uL (150-450); RBC 3.33 m/uL (3.80-5.40); RDW 14.2 % (11.5-15.5); WBC 8.1 k/uL (3.8-10.6)
--- NOTE | 2019-03-10 15:55 | XR ---
EXAMINATION TYPE: XR chest 2V DATE OF EXAM: 03/10/2019 COMPARISON: Chest x-ray February 17, 2019 HISTORY: Cough. TECHNIQUE: Frontal and lateral views of the chest are obtained. FINDINGS: There is worsening left basilar opacity. Right lung is clear. No mediastinal shift. The ca rdiac silhouette size is within normal limits. The osseous structures are intact. IMPRESSION: Worsening left basal opacity felt to reflect enlarging or recurrent moderate to large si ze left pleural effusion with associated left basilar atelectasis and/or infiltrate.
[2019-03-10] MEDS ORDERED: FUROSEMIDE 10 MG/ML 10 ML VIAL IV STA (16:24)
[2019-03-10 16:26] LABS: Band Neutrophils % 2 %; Eosinophils # (M) 0.08 k/uL (0-0.7); Lymphocytes # (M) 1.22 k/uL (1.0-4.8); Monocytes # (M) 0.89 k/uL (0-1.0); Neutrophils % (M) 71 %; Nucleated Red Blood Cells 0 /100 WBC (0-0); Poikilocytosis (M) Present; Target Cells Present; Total Cells Counted 100
[2019-03-10] MEDS ORDERED: NALOXONE 0.4 MG/ML 1 ML VIAL IV PRN (17:13)
[2019-03-10] MEDS ORDERED: SPIRONOLACTONE 25 MG TAB PO STA (17:15)
[2019-03-10] MEDS: LACTULOSE 20 GM/30 ML CUP PO SCH (20:32)
[2019-03-11] MEDS ORDERED: ALBUTEROL NEBULIZED 2.5 MG/3 ML INHALATION PRN (08:36)
[2019-03-11] MEDS ORDERED: SPIRONOLACTONE 100 MG PO SCH (09:00)
[2019-03-11] MEDS ORDERED: FUROSEMIDE 40 MG TAB PO SCH (09:00)
[2019-03-11] MEDS: traMADol 50 MG TAB PO PRN ×2 (10:08→18:27)
[2019-03-11] MEDS: LACTULOSE 20 GM/30 ML CUP PO SCH ×3 (10:09→23:59)
[2019-03-11] MEDS: SPIRONOLACTONE 25 MG TAB PO SCH ×2 (10:09→20:13)
[2019-03-11] MEDS: FUROSEMIDE 40 MG TAB PO SCH ×2 (10:09→17:48)
[2019-03-11] MEDS: MAGNESIUM OXIDE 400 MG TAB PO SCH (10:09)
[2019-03-11] MEDS: CLOPIDOGREL 75 MG TAB PO SCH (10:09)
[2019-03-11] MEDS: PANTOPRAZOLE 40 MG TABLET PO SCH (10:14)
[2019-03-11] MEDS: IPRATROPIUM-ALBUTEROL 3 ML NEB INHALATION SCH ×3 (12:35→19:25)
--- NOTE | 2019-03-11 12:45 | CONS ---
CONSULTATION DATE OF DICTATION: 03/11/2019. REASON FOR CONSULTATION: Ascites and hepatic encephalopathy. HISTORY OF PRESENT ILLNESS: The patient is a 58-year-old white female with history of heavy alcohol abuse most of her life with decompensated alcoholic cirrhosis of the liver who was admitted to the hospital just a month ago. She now presents to the hospital with abdominal distention and abdominal discomfort. She also has altered mental status. She came into the emergency room yesterday and was noted to have significant ascites and also elevated ammonia level to 125. She states that she quit drinking alcohol in January of last year, at which time she was hospitalized for a few days. During her last hospitalization she was discharged home on Lasix 40 mg twice daily, spironolactone 100 mg twice daily as well as lactulose. It is unclear whether she has been taking her on her lactulose on a regular basis. She denies any nausea, vomiting, rectal bleeding or melena. PAST MEDICAL HISTORY: Her past medical history is significant for: 1. Alcoholic cirrhosis of the liver diagnosed recently. 2. Ascites. 3. COPD. 4. Anxiety. 5. Seizure disorder. 6. History of chronic pancreatitis. MEDICATIONS: Medications at home include Zenpep, magnesium oxide, Zofran, Protonix, vitamin D, Serevent, Ellipta, Ultram, Keppra, lactulose, Flonase, albuterol. ALLERGIES: NO KNOWN DRUG ALLERGIES. SOCIAL HISTORY: Chronic smoker. Heavy alcohol use, as mentioned above. FAMILY HISTORY: Mother had uterine cancer. Father had coronary artery disease. REVIEW OF SYSTEMS: CARDIOPULMONARY: No chest pain or shortness of breath. GENITOURINARY: No dysuria or hematuria. MUSCULOSKELETAL: Unremarkable. SKIN: Multiple bruising noted. NEUROLOGY: Unremarkable other than altered mental status. ENT/VISION: Unremarkable. CONSTITUTIONAL: Weight loss of 10 pounds. No fever, chills, night sweats. ENDOCRINE: Unremarkable. PSYCHIATRIC: Unremarkable. PHYSICAL EXAMINATION: She appears comfortable. No apparent distress. Vital signs are stable. Blood pressure is 114/56, pulse rate 101, temperature 97.9. HEENT examination unremarkable. Conjunctivae pink. Sclerae anicteric. Oral cavity no lesions. NECK: No JVD or lymph node enlargement. CHEST: Clear to auscultation. HEART: Regular rate and rhythm. ABDOMEN: Distended. Significant free fluid noted in the abdomen. Positive shift and dullness and fluid thrill. EXTREMITIES: One plus pedal edema. SKIN: No rashes. NEUROLOGIC: Alert. Oriented to name and place but not to time. LABS: Labs done at the time of admission to the hospital showed WBC 8.1, hemoglobin 10.9, platelets normal. Basic metabolic panel showed a BUN of 17, creatinine 1.09. T- bilirubin is 3.3, AST 45, ALT 23, alkaline phosphatase 155. Sodium 134. Ammonia level was 120. IMPRESSION: 1. Altered mental status secondary to hepatic encephalopathy, presently on oral lactulose 30 mL twice daily. 2. Massive ascites. The patient was on Lasix 40 mg twice daily as well as Aldactone 100 mg twice daily. It is unclear whether she has been taking her medications on an outpatient basis. Her last paracentesis was during her last hospitalization a month ago. 3. Elevated liver function tests consistent with chronic alcoholic liver disease with liver decompensation. 4. Mild anemia. RECOMMENDATIONS: 1. Will schedule the patient for large-volume paracentesis for therapeutic purposes. 2. Will resume her Lasix 40 mg daily and Aldactone 100 mg daily. 3. Low-salt diet. 4. Increase lactulose and titrate so that she has 3-4 soft bowel movements daily. 5. Repeat labs in the morning and will follow with you closely during her hospital stay. Thank you for this consultation. INOCENCIA / DAMARI: [id number] /
[2019-03-11] MEDS ORDERED: ALBUTEROL NEBULIZED 2.5 MG/3 ML INHALATION SCH (13:00)
[2019-03-11] MEDS: FORMOTEROL FUMARATE 20 MCG/2 ML NEBU INHALATION SCH (19:25)
--- NOTE | 2019-03-11 21:44 | P.HPIM ---
History of Present Illness H&P Date: 03/11/19 Chief Complaint: Distended abdomen History of presenting complaint: This is a pleasant 58-year-old patient who follows with Dr. Rosalina Donnelly. Chronic stable medical conditions include COPD, seizure disorder, coronary artery disease with a history of PR,alcohol induced cirrhosis, portal hypertension. Follows with [facility]. Patient was heavy alcohol drinker up to go 6 months ago. Patient was in the hospital a few weeks ago with his complications of chronic liver disease. And cirrhosis. Patient now presents with worsening abdominal distention and increasing edema. Decrease activity and also noticed to be increasingly confused. Tired rundown. Not able to eat much. No fever no chills. Review of systems: GEN.: Tired EYES: None HEENT: None NECK: None RESPIRATORY: Increased shortness of breath CARDIOVASCULAR: Increasing edema GASTROINTESTINAL: Abdominal distention GENITOURINARY: None MUSCULOSKELETAL: None LYMPHATICS: None HEMATOLOGICAL: None PSYCHIATRY: Some confusion NEUROLOGICAL: None Social history: Did heavy alcohol drinking close to 40 years. Stopped 6 months ago. Smoking for many years down to less than a pack a day. Lives with her daughter. Physical examination: VITAL SIGNS: 97.1, 106, 16, 121/75, 100% room air GENERAL: BMI 21.9, laying in bed tired a bit lethargic spider nevi present EYES: Pupils equal. Conjunctiva pale. HEENT: External appearance of nose and ears normal, oral cavity grossly normal. NECK: JVD not raised; masses not palpable. HEART: [First and second heart sounds are normal; edema present. LUNGS: Respiratory rate increased, some wheezing decreased breath sounds at the bases. ABDOMEN: Soft, distended, dullness in the flanks nontender, liver spleen not palpable, no masses palpable. PSYCH: Awake, answering questions though slow NEUROLOGICAL: Cranial nerves grossly intact; no facial asymmetry, power and sensation grossly intact. LYMPHATICS: No lymph nodes palpable in the axilla and neck INVESTIGATIONS, reviewed in the clinical context: White count 8.1 hemoglobin 10.9 potassium 4.6 creatinine 1.09 Patient crit was 0.71 on February 19 bilirubin 3.3 AST 45 ALT 23 albumin 2.3 Assessment: -Large ascites secondary to cirrhosis causing shortness of breath -Acute fluid overload from cirrhosis -COPD -Chronic nicotine dependence patient cigarette smoker - cirrhosis secondary to alcoholism -Hypoalbuminemia secondary to cirrhosis -Auto anticoagulated due to cirrhosis - portal hypertension -Hepatic encephalopathy -Increasing medical debility Plan: Patient be started on lactulose to titrate to 3-4 bowel movements a day. Diuretics have been increased. Patient have large volume paracentesis carried out. We'll also add vitamin K check pro time. Prognosis guarded. GI was consulted. Will add a small dose of Toprol, for the portal hypertension Past Medical History Past Medical History: COPD, Liver Disease, Myocardial Infarction (PR), Seizure Disorder Additional Past Medical History / Comment(s): Panceatitis, seizure (last one 11/2018), PR (11/2018), sepsis, TIA/CVA x2 (2013, nov 2018), CHIGN[facility] LAGOON, ascites, cirrhosis, liver failure transplant list in march 2019, quit drinking july 2018 (pt states she has had a problem with alcohol abuse since she was 17 years old) Last Myocardial Infarction Date:: 11/2018 History of Any Multi-Drug Resistant Organisms: None Reported Past Surgical History: Section, Heart Catheterization, Orthopedic Sulaiman rika Additional Past Surgical History / Comment(s): heart cath 11/2018, paracentesis x3 since july 2018, left arm fracture repair Past Anesthesia/Blood Transfusion Reactions: No Reported Reaction Past Psychological History: Anxiety Smoking Status: Current every day smoker Past Alcohol Use History: Abuse, Heavy Additional Past Alcohol Use History / Comment(s): quit drinking july 2018 (pt states she has had a problem with alcohol abuse since she was 17 years old) Past Drug Use History: None Reported - Past Family History Mother Family Medical History: Cancer Additional Family Medical History / Comment(s): uterine CA Father Family Medical History: Myocardial Infarction (PR) Additional Family Medical History / Comment(s): Medications and Allergies Home Medications Medication Instructions Recorded Confirmed Type Albuterol Inhaler [Ventolin Hfa 2 puff INHALATION RT-Q4H PRN 02/17/19 03/10/19 History Inhaler] Albuterol Nebulized [Ventolin 2.5 mg INHALATION RT-TID 02/17/19 03/10/19 History Nebulized] Clopidogrel [Plavix] 75 mg PO DAILY 02/17/19 03/10/19 History Lactulose 20 gm PO BID PRN 02/17/19 03/10/19 History Magnesium Oxide [Mag-Ox] 400 mg PO DAILY 02/17/19 03/10/19 History Ondansetron [Zofran] 4 - 8 mg PO BID PRN 02/17/19 03/10/19 History Pantoprazole [Protonix] 40 mg PO DAILY 02/17/19 03/10/19 History Salmeterol Xinafoate [Serevent 1 puff INHALATION RT-BID 02/17/19 03/10/19 History Diskus] Umeclidinium [place] [Incruse 1 puff INHALATION RT-DAILY 02/17/19 03/10/19 History Ellipta] levETIRAcetam [Keppra Oral 750 mg PO BID 02/17/19 03/10/19 History Solution] traMADol HCL [Ultram] 100 mg PO BID PRN 02/17/19 03/10/19 History Furosemide [Lasix] 40 mg PO BID #60 tablet 02/19/19 03/10/19 Rx Spironolactone [Aldactone] 100 mg PO BID #60 tab 02/19/19 03/10/19 Rx Allergies Allergy/AdvReac Type Severity Reaction Status Date / Time No Known Allergies Allergy Verified 03/10/19 17:32 Physical Exam Vitals: Vital Signs Temp Pulse Pulse Resp BP BP Pulse Ox 03/11/19 07:54 101 H 14 03/11/19 07:49 97.9 F 101 H 14 114/56 96 03/11/19 01:13 97.8 F 108 H 16 130/77 97 03/10/19 19:03 97.8 F 100 12 117/74 96 03/10/19 17:46 97.5 F L 109 H 18 123/76 99 03/10/19 16:45 97 F L 110 H 18 117/66 98 03/10/19 13:32 97.1 F L 106 H 16 121/75 100 Intake and Output 03/10/19 03/11/19 03/11/19 22:59 06:59 14:59 Other: # Voids 1 1 Weight 63.503 kg Results CBC & Chem 7: 03/10/19 15:18 03/10/19 15:18 Labs: Abnormal Lab Results - Last 24 Hours (Table) 03/10/19 03/10/19 03/10/19 Range/Units 15:18 15:18 15:18 RBC 3.33 L (3.80-5.40) m/uL Hgb 10.9 L (11.4-16.0) gm/dL MCV 103.3 H (80.0-100.0) fL Sodium 134 L (137-145) mmol/L Creatinine 1.09 H (0.52-1.04) mg/dL Glucose 109 H (74-99) mg/dL Total Bilirubin 3.3 H (0.2-1.3) mg/dL AST 45 H (14-36) U/L Alkaline Phosphatase 155 H (38-126) U/L Ammonia 120 H (<30) umol/L Albumin 2.3 L (3.5-5.0) g/dL Thrombosis Risk Factor Assmnt - Choose All That Apply Any of the Below Risk Factors Present?: Yes Each Factor Represents 1 point: Abnormal pulmonary function (COPD), Age 41-60 years, Varicose veins Thrombosis Risk Factor Assessment Total Risk Factor Score: 3 Thrombosis Risk Factor Assessment Level: Moderate Risk
[2019-03-11 23:56] LABS: INR 1.5 (<1.2); Prothrombin Time 15.5 sec (9.0-12.0)
[2019-03-12] MEDS: PHYTONADIONE ORAL 5 MG/5 ML ORAL.SYRG PO SCH ×2 (00:01→09:38)
[2019-03-12 07:11] LABS: INR 1.6 (<1.2)
[2019-03-12 07:23] LABS: Calcium 8.4 mg/dL (8.4-10.2); Magnesium 1.6 mg/dL (1.6-2.3); Potassium 4.2 mmol/L (3.5-5.1)
[2019-03-12] MEDS: SPIRONOLACTONE 25 MG TAB PO SCH (07:29)
[2019-03-12] MEDS: PANTOPRAZOLE 40 MG TABLET PO SCH (07:29)
[2019-03-12] MEDS: FUROSEMIDE 40 MG TAB PO SCH (07:30)
[2019-03-12] MEDS: MAGNESIUM OXIDE 400 MG TAB PO SCH (07:30)
[2019-03-12] MEDS: traMADol 50 MG TAB PO PRN ×2 (07:30→20:08)
[2019-03-12] MEDS: CLOPIDOGREL 75 MG TAB PO SCH (07:30)
[2019-03-12] MEDS: LACTULOSE 20 GM/30 ML CUP PO SCH ×3 (07:32→22:41)
[2019-03-12] MEDS ORDERED: IPRATROPIUM 0.5 MG/2.5 ML NEBU INHALATION SCH (08:00)
[2019-03-12] MEDS: IPRATROPIUM-ALBUTEROL 3 ML NEB INHALATION SCH ×4 (08:30→20:14)
[2019-03-12] MEDS: FORMOTEROL FUMARATE 20 MCG/2 ML NEBU INHALATION SCH ×2 (08:30→20:14)
--- NOTE | 2019-03-12 10:24 | PN ---
PROGRESS NOTE DATE OF DICTATION: March 12, 2019 Patient is a 58-year-old pleasant white female with history of alcoholic cirrhosis of the liver with portal hypertension and ascites, admitted to the hospital with altered mental status and worsening ascites. The patient has been on Lasix 40 mg twice daily as well as spironolactone 100 mg twice daily on an outpatient basis. She was scheduled for large-volume paracentesis yesterday, but there was no radiologist available to perform the procedure. In the meantime, the patient continues to remain slightly confused. She denies any symptoms. Does complain of some abdominal pain. As per the nursing staff, she had about 5 loose watery bowel movements yesterday, none so far this morning. PHYSICAL EXAMINATION: She appears comfortable in no apparent distress. Vital signs stable. Blood pressure is 99/66, pulse rate 100, temperature 97.5. HEENT examination unremarkable. Conjunctivae pink. Sclerae anicteric. Oral cavity no lesions. Neck: No JVD or lymph node enlargement. Chest clear to auscultation. HEART: Regular rate and rhythm. Abdomen is distended. Significant amount of ascites noted. Mild diffuse tenderness seen. EXTREMITIES: 1+ pedal edema. SKIN no rashes, but multiple bruises in the upper extremities. NEUROLOGIC: Alert, oriented to name but not place. LABS: CBC was not done. INR is 1.6. BUN is 20, creatinine 1.23. Yesterday, T-bilirubin 3.3 cm. AST 45, ALT 23, alkaline phosphatase 155. INR is 1.6. IMPRESSION: 1. Cirrhosis of the liver with ascites/gradual decompensation. 2. Massive ascites, presently on Lasix 40 b.i.d. and Aldactone 100 mg twice daily. Her BUN and creatinine have slightly worsened yesterday. 3. Mild coagulopathy secondary to underlying chronic liver disease. 4. Hepatic encephalopathy with elevated ammonia. Continue with oral lactulose. I will add Xifaxan 550 mg twice daily. Repeat Ammonia levels today. RECOMMENDATIONS: 1. Continue with oral lactulose. 2. Add Xifaxan 550 mg twice daily. 3. Decrease Lasix and Aldactone to 40 mg/100 mg respectively because of worsening BUN and creatinine. 4. Scheduled for large-volume paracentesis tomorrow. 5. Repeat labs in the morning. Thank you for this consultation. MMODL / IJN: [id number] /
[2019-03-12] MEDS: RIFAXIMIN 550 MG TABLET PO SCH ×2 (11:53→20:13)
--- NOTE | 2019-03-12 22:38 | P.PN ---
Progress Note - Text Progress Note Date: 03/12/19 Chief Complaint: Distended abdomen Interval history: This is a pleasant 58-year-old patient who follows with Dr. Rosalina Donnelly. Chronic stable medical conditions include COPD, seizure disorder, coronary artery disease with a history of SD,alcohol induced cirrhosis, portal hypertension. Follows with [facility]. Patient was heavy alcohol drinker up to go 6 months ago. Patient was in the hospital a few weeks ago with his complications of chronic liver disease. And cirrhosis. Patient now presents with worsening abdominal distention and increasing edema. Decrease activity and also noticed to be increasingly confused. Tired rundown. Not able to eat much. No fever no chills. Admitted with large ascites, secondary to cirrhosis, acute fluid overload, COPD exacerbation, hepatic encephalopathy. Started on lactulose diuretics. Today-pending large volume paracentesis. A bit more tired and lethargic. Has been getting lactulose. Had some lunch and breakfast. Has been having bowel movements. Tired lethargic in bed. Review of systems: Was done for constitutional, cardiovascular, GI, pulmonary. relevant finding as above Active Medications Albuterol Sulfate (Ventolin Nebulized) 2.5 mg INHALATION RT-Q4H PRN PRN Reason: Shortness Of Breath Albuterol/Ipratropium (Duoneb 0.5 Mg-3 Mg/3 Ml Soln) 3 ml INHALATION RT-QID [facility] Last Admin: 03/12/19 20:14 Dose: Not Given Documented by: Formoterol Fumarate (Perforomist) 20 mcg INHALATION RT-BID [facility] Last Admin: 03/12/19 20:14 Dose: Not Given Documented by: Furosemide (Lasix) 40 mg PO DAILY [facility] Lactulose (Cephulac) 20 gm PO TID [facility] Last Admin: 03/12/19 17:52 Dose: 20 gm Documented by: Levetiracetam (Keppra) 750 mg PO BID [facility] Last Admin: 03/12/19 20:13 Dose: 750 mg Documented by: Magnesium Oxide (Mag-Ox) 400 mg PO DAILY [facility] Last Admin: 03/12/19 07:30 Dose: 400 mg Documented by: Naloxone HCl (Narcan) 0.2 mg IV Q2M PRN PRN Reason: Opioid Reversal Pantoprazole Sodium (Protonix) 40 mg PO AC-BRKFST [facility] Last Admin: 03/12/19 07:29 Dose: 40 mg Documented by: Phytonadione (Vitamin K Oral) 10 mg PO DAILY [facility] Last Admin: 03/12/19 09:38 Dose: 10 mg Documented by: Rifaximin (Xifaxan) 550 mg PO BID [facility] Stop: 04/11/19 10:16 Last Admin: 03/12/19 20:13 Dose: 550 mg Documented by: Spironolactone (Aldactone) 100 mg PO DAILY [facility] Tramadol HCl (Ultram) 100 mg PO BID PRN PRN Reason: Pain Last Admin: 03/12/19 20:08 Dose: 100 mg Documented by: Physical examination: VITAL SIGNS: 97.5, 100, 18, 99/66, 98% on room air GENERAL: laying in bed tired , lethargic spider nevi present EYES: Pupils equal. Conjunctiva pale. HEENT: External appearance of nose and ears normal, oral cavity grossly normal. NECK: JVD not raised; masses not palpable. HEART: [First and second heart sounds are normal; edema present. LUNGS: Respiratory rate increased, some wheezing decreased breath sounds at the bases. ABDOMEN: Soft, distended, dullness in the flanks nontender, liver spleen not palpable, no masses palpable. PSYCH: Awake, answering questions though slow INVESTIGATIONS, reviewed in the clinical context: Pro time 16 pressure 4.2 bun 20 creatinine 1.23 Previous testing White count 8.1 hemoglobin 10.9 potassium 4.6 creatinine 1.09 Patient crit was 0.71 on February 19 bilirubin 3.3 AST 45 ALT 23 albumin 2.3 Assessment: -Large ascites secondary to cirrhosis causing shortness of breath, slow to respond -Acute fluid overload from cirrhosis -COPD -Chronic nicotine dependence patient cigarette smoker - cirrhosis secondary to alcoholism -Hypoalbuminemia secondary to cirrhosis -Auto anticoagulated due to cirrhosis - portal hypertension -Hepatic encephalopathy, on lactulose, slow to respond -Increasing medical debility Plan: Continue with lactulose. Discussed with Dr. Gabriela Todd from GI. Prognosis guarded. Awaiting large volume paracentesis. Patient may be going into cardiorenal syndrome. Follow electrolytes closely.
[2019-03-13] MEDS: FORMOTEROL FUMARATE 20 MCG/2 ML NEBU INHALATION SCH ×2 (08:28→19:31)
[2019-03-13] MEDS: IPRATROPIUM-ALBUTEROL 3 ML NEB INHALATION SCH ×4 (08:29→19:31)
[2019-03-13 09:13] LABS: Calcium 8.2 mg/dL (8.4-10.2); Potassium 4.3 mmol/L (3.5-5.1)
--- NOTE | 2019-03-13 09:23 | US ---
EXAMINATION TYPE: US abdomen limited DATE OF EXAM: 03/13/2019 COMPARISON: NONE CLINICAL HISTORY: ascites. Ascites TECHNIQUE/FINDINGS: Grayscale imaging was performed of all 4 quadrants to evaluate for ascites and. M oderate to large amount of abdominal ascites is visualized as there is ascites in all 4 quadrants. IMPRESSION: Moderate to large amount of abdominopelvic ascites.
[2019-03-13] MEDS: PANTOPRAZOLE 40 MG TABLET PO SCH (09:54)
[2019-03-13] MEDS: FUROSEMIDE 40 MG TAB PO SCH (09:54)
[2019-03-13] MEDS: MAGNESIUM OXIDE 400 MG TAB PO SCH (09:55)
[2019-03-13] MEDS: LACTULOSE 20 GM/30 ML CUP PO SCH ×3 (09:55→20:16)
[2019-03-13] MEDS: traMADol 50 MG TAB PO PRN ×2 (09:56→17:09)
[2019-03-13] MEDS: SPIRONOLACTONE 25 MG TAB PO SCH (09:56)
[2019-03-13] MEDS: RIFAXIMIN 550 MG TABLET PO SCH ×2 (10:00→20:16)
[2019-03-13] MEDS: PHYTONADIONE ORAL 5 MG/5 ML ORAL.SYRG PO SCH (10:51)
--- NOTE | 2019-03-13 22:50 | P.PN ---
Subjective Progress Note Date: 03/13/19 Principal diagnosis: Decompensated alcoholic cirrhosis with ascites and hepatic encephalopathy Patient seen lying in bed. No abdominal pain reported that she does feel distended. Has tolerated her diet. No bowel movements today. Objective - Vital Signs Vital signs: Vital Signs Temp 98.1 F 03/13/19 19:03 Pulse 109 H 03/13/19 19:03 Resp 18 03/13/19 19:03 BP 91/56 03/13/19 19:03 Pulse Ox 96 03/13/19 19:03 Intake & Output 03/13/19 03/13/19 03/14/19 06:59 18:59 06:59 Intake Total 50 298 250 Balance 50 298 250 Intake: Oral 50 298 250 Other: Voiding Method Incontinent Bedpan Diaper # Voids 0 1 # Bowel Movements 1 - Exam On physical examination, patient appears comfortable in no apparent distress. HEAD: Normocephalic, atraumatic. EYES: No scleral icterus. No conjunctival injection. MOUTH: No lesions, tongue midline. NECK: Trachea midline, no gross abnormalities. CHEST: Clear to auscultation with no wheezing or rhonchi appreciated. HEART: Regular rate and rhythm. ABDOMEN: Soft, distended with positive fluid wave. Bowel sounds are positive. No organomegaly. No guarding or rigidity. EXTREMITIES: No pedal edema. SKIN: No rashes, no jaundice. NEUROLOGIC: Alert and oriented x2, with mild asterixis noted. - Labs CBC & Chem 7: 03/10/19 15:18 03/13/19 08:32 Labs: Abnormal Lab Results - Last 24 Hours (Table) 03/13/19 Range/Units 08:32 Sodium 132 L (137-145) mmol/L BUN 19 H (7-17) mg/dL Creatinine 1.19 H (0.52-1.04) mg/dL Calcium 8.2 L (8.4-10.2) mg/dL Assessment and Plan (1) Alcoholic cirrhosis of liver with ascites Narrative/Plan: 58-year-old female with a medical history significant for decompensated alcohol cirrhosis for which the patient has been abstinent from alcohol for approximately 6 months who presented with worsening abdominal distention and confusion. Patient had been noncompliant with lactulose therapy due to social situation as she lives on the top low two-story house and does not have access to a toilet on the second floor. She was scheduled for paracentesis today but this was not performed due to antiplatelet therapy. Current Visit: No Status: Acute Code(s): K70.31 - ALCOHOLIC CIRRHOSIS OF LIVER WITH ASCITES SNOMED Code(s): 016031465 (2) Ascites Current Visit: Yes Status: Acute Code(s): R18.8 - OTHER ASCITES SNOMED Code(s): 642052559 (3) Hepatic encephalopathy Current Visit: Yes Status: Acute Code(s): K72.90 - HEPATIC FAILURE, UNSPECIFIED WITHOUT COMA SNOMED Code(s): 15367175 Plan: Supportive care Okay for sodium restricted diet Continue lactulose titrated to 3 bowel movements daily Continue rifaximin therapy Continue Lasix and Aldactone Continue alcohol abstinence Hold antiplatelet therapy for paracentesis Patient can be set up for outpatient ultrasound paracentesis if otherwise medically stable Extensive discussion with the patient's daughter, and goals of care need to be discussed with the patient and her family if she is unwilling to be compliant with medical management at this time Thank you for allowing us to participate in the care of the patient we will continue to follow
--- NOTE | 2019-03-14 00:20 | P.PN ---
Progress Note - Text Progress Note Date: 03/13/19 Chief Complaint: Distended abdomen Interval history: This is a pleasant 58-year-old patient who follows with Dr. Rosalina Donnelly. Chronic stable medical conditions include COPD, seizure disorder, coronary artery disease with a history of [place],alcohol induced cirrhosis, portal hypertension. Follows with [facility]. Patient was heavy alcohol drinker up to go 6 months ago. Patient was in the hospital a few weeks ago with his complications of chronic liver disease. And cirrhosis. Patient now presents with worsening abdominal distention and increasing edema. Decrease activity and also noticed to be increasingly confused. Tired rundown. Not able to eat much. No fever no chills. Admitted with large ascites, secondary to cirrhosis, acute fluid overload, COPD exacerbation, hepatic encephalopathy. Started on lactulose diuretics. Today-since patient received Plavix, interventional radiology will not do paracentesis the next 5 days. Tired. A bit lethargic. Having bowel movements with a close. Daughter the bedside. Review of systems: Was done for constitutional, cardiovascular, GI, pulmonary. relevant finding as above Active Medications Albuterol Sulfate (Ventolin Nebulized) 2.5 mg INHALATION RT-Q4H PRN PRN Reason: Shortness Of Breath Albuterol/Ipratropium (Duoneb 0.5 Mg-3 Mg/3 Ml Soln) 3 ml INHALATION RT-QID [facility] Last Admin: 03/13/19 19:31 Dose: Not Given Documented by: Formoterol Fumarate (Perforomist) 20 mcg INHALATION RT-BID [facility] Last Admin: 03/13/19 19:31 Dose: Not Given Documented by: Furosemide (Lasix) 40 mg PO DAILY [facility] Last Admin: 03/13/19 09:54 Dose: 40 mg Documented by: Lactulose (Cephulac) 20 gm PO TID [facility] Last Admin: 03/13/19 20:16 Dose: 20 gm Documented by: Levetiracetam (Keppra) 750 mg PO BID [facility] Last Admin: 03/13/19 20:16 Dose: 750 mg Documented by: Magnesium Oxide (Mag-Ox) 400 mg PO DAILY [facility] Last Admin: 03/13/19 09:55 Dose: 400 mg Documented by: Naloxone HCl (Narcan) 0.2 mg IV Q2M PRN PRN Reason: Opioid Reversal Pantoprazole Sodium (Protonix) 40 mg PO AC-BRKFST [facility] Last Admin: 03/13/19 09:54 Dose: 40 mg Documented by: Phytonadione (Vitamin K Oral) 10 mg PO DAILY [facility] Last Admin: 03/13/19 10:51 Dose: 10 mg Documented by: Rifaximin (Xifaxan) 550 mg PO BID [facility] Stop: 04/11/19 10:16 Last Admin: 03/13/19 20:16 Dose: 550 mg Documented by: Spironolactone (Aldactone) 100 mg PO DAILY [facility] Last Admin: 03/13/19 09:56 Dose: 100 mg Documented by: Tramadol HCl (Ultram) 100 mg PO BID PRN PRN Reason: Pain Last Admin: 03/13/19 17:09 Dose: 100 mg Documented by: Physical examination: VITAL SIGNS: 98, 105, 14, 101/60, 97% room air GENERAL: laying in bed tired , lethargic spider nevi present EYES: Pupils equal. Conjunctiva pale. HEENT: External appearance of nose and ears normal, oral cavity grossly normal. NECK: JVD not raised; masses not palpable. HEART: [First and second heart sounds are normal; edema present. LUNGS: Respiratory rate increased, some wheezing decreased breath sounds at the bases. ABDOMEN: Soft, distended, dullness in the flanks nontender, liver spleen not palpable, no masses palpable. PSYCH: Awake, answering simple questions INVESTIGATIONS, reviewed in the clinical context: duration 4.3 bun 19 crit 1.19 Previous testing White count 8.1 hemoglobin 10.9 potassium 4.6 creatinine 1.09 Patient crit was 0.71 on February 19 bilirubin 3.3 AST 45 ALT 23 albumin 2.3 pro time 16 Assessment: -Large ascites secondary to cirrhosis causing shortness of breath, slow to respond -Acute fluid overload from cirrhosis -COPD -Chronic nicotine dependence patient cigarette smoker - cirrhosis secondary to alcoholism -Hypoalbuminemia secondary to cirrhosis -Auto anticoagulated due to cirrhosis - portal hypertension -Hepatic encephalopathy, on lactulose, slow to respond -Increasing medical debility Plan: interventional radiology not to the paracentesis because patient received Plavix. Continue current medication treatment plan including lactulose. Patient's daughter wishes to peak to the GI client service consultant.patient also rifaximin. Advanced care planning: This was done in detail at the bedside the patient and patient's daughter. Clinical condition was discussed length. They understand the prognosis guarded. This point patient is full code. Conditions regarding to DO NOT RESUSCITATE status was discussed. Patient and the daughter will discuss this further. At this point current treatment plan is to continue. We addressed the CODE STATUS again. Multiple questions were answered. Patient's daughter will be decision maker in the event patient unable to do so. 25 minutes was spent on the assessment of the case.
[2019-03-14] MEDS: FORMOTEROL FUMARATE 20 MCG/2 ML NEBU INHALATION SCH ×2 (08:03→20:10)
[2019-03-14] MEDS: IPRATROPIUM-ALBUTEROL 3 ML NEB INHALATION SCH ×4 (08:03→20:10)
[2019-03-14] MEDS: FUROSEMIDE 40 MG TAB PO SCH (08:34)
[2019-03-14] MEDS: PANTOPRAZOLE 40 MG TABLET PO SCH (08:34)
[2019-03-14] MEDS: LACTULOSE 20 GM/30 ML CUP PO SCH ×4 (08:34→21:20)
[2019-03-14] MEDS: SPIRONOLACTONE 25 MG TAB PO SCH (08:35)
[2019-03-14] MEDS: RIFAXIMIN 550 MG TABLET PO SCH ×2 (08:35→21:19)
[2019-03-14] MEDS: MAGNESIUM OXIDE 400 MG TAB PO SCH (08:35)
[2019-03-14] MEDS: PHYTONADIONE ORAL 5 MG/5 ML ORAL.SYRG PO SCH (08:43)
[2019-03-14] MEDS: traMADol 50 MG TAB PO PRN ×2 (08:45→18:46)
--- NOTE | 2019-03-14 21:50 | P.PN ---
Subjective Progress Note Date: 03/14/19 Principal diagnosis: Decompensated alcoholic cirrhosis with ascites and hepatic encephalopathy Patient seen lying in bed. Patient is tolerating diet. One nonbloody bowel movement today. So reporting abdominal distention. Objective - Vital Signs Vital signs: Vital Signs Temp 97.9 F 03/14/19 12:00 Pulse 96 03/14/19 12:00 Resp 20 03/14/19 12:00 BP 111/71 03/14/19 12:00 Pulse Ox 96 03/14/19 12:00 Intake & Output 03/13/19 03/14/19 03/14/19 18:59 06:59 18:59 Intake Total 298 250 80 Balance 298 250 80 Intake: IV 80 0.9 NS 80 Oral 298 250 Other: Voiding Method Incontinent Bedpan Bedpan Diaper Diaper # Voids 0 1 # Bowel Movements 1 - Exam On physical examination, patient appears comfortable in no apparent distress. HEAD: Normocephalic, atraumatic. EYES: No scleral icterus. No conjunctival injection. MOUTH: No lesions, tongue midline. NECK: Trachea midline, no gross abnormalities. CHEST: Clear to auscultation with no wheezing or rhonchi appreciated. HEART: Regular rate and rhythm. ABDOMEN: Soft, distended with positive fluid wave. Bowel sounds are positive. No organomegaly. No guarding or rigidity. EXTREMITIES: No pedal edema. SKIN: No rashes, no jaundice. NEUROLOGIC: Alert and oriented x2, with mild asterixis noted. - Labs CBC & Chem 7: 03/10/19 15:18 03/13/19 08:32 Assessment and Plan (1) Alcoholic cirrhosis of liver with ascites Narrative/Plan: 58-year-old female with a medical history significant for decompensated alcohol cirrhosis for which the patient has been abstinent from alcohol for approximately 6 months who presented with worsening abdominal distention and confusion. Patient had been noncompliant with lactulose therapy due to social situation as she lives on the top low two-story house and does not have access to a toilet on the second floor. She was scheduled for paracentesis today but this was not performed due to antiplatelet therapy. Current Visit: No Status: Acute Code(s): K70.31 - ALCOHOLIC CIRRHOSIS OF LIVER WITH ASCITES SNOMED Code(s): 236894194 (2) Ascites Current Visit: Yes Status: Acute Code(s): R18.8 - OTHER ASCITES SNOMED Code(s): 944166251 (3) Hepatic encephalopathy Current Visit: Yes Status: Acute Code(s): K72.90 - HEPATIC FAILURE, UNSPECIFIED WITHOUT COMA SNOMED Code(s): 15439815 Plan: Supportive care Okay for sodium restricted diet Continue lactulose titrated to 3 bowel movements daily, can increase to 4 times a day if patient is not meeting necessary number of bowel movements Continue rifaximin therapy Continue Lasix and Aldactone Continue alcohol abstinence Hold antiplatelet therapy for paracentesis Patient can be set up for outpatient ultrasound paracentesis if otherwise medically stable Extensive discussion with the patient's daughter yesterday , and goals of care need to be discussed with the patient and her family if she is unwilling to be compliant with medical management at this time Thank you for allowing us to participate in the care of the patient we will continue to follow
--- NOTE | 2019-03-14 23:36 | P.PN ---
Progress Note - Text Progress Note Date: 03/14/19 Chief Complaint: Distended abdomen Interval history: This is a pleasant 58-year-old patient who follows with Dr. Rosalina Donnelly. Chronic stable medical conditions include COPD, seizure disorder, coronary artery disease with a history of [place],alcohol induced cirrhosis, portal hypertension. Follows with sanford PA. Patient was heavy alcohol drinker up to go 6 months ago. Patient was in the hospital a few weeks ago with his complications of chronic liver disease. And cirrhosis. Patient now presents with worsening abdominal distention and increasing edema. Decrease activity and also noticed to be increasingly confused. Tired rundown. Not able to eat much. No fever no chills. Admitted with large ascites, secondary to cirrhosis, acute fluid overload, COPD exacerbation, hepatic encephalopathy. Started on lactulose diuretics. Today-paracentesis postponed because of patient receiving Plavix. Having BMs. Decreased oral intake. Tired. Bit more awake. Review of systems: Was done for constitutional, cardiovascular, GI, pulmonary. relevant finding as above Active Medications Albuterol Sulfate (Ventolin Nebulized) 2.5 mg INHALATION RT-Q4H PRN PRN Reason: Shortness Of Breath Albuterol/Ipratropium (Duoneb 0.5 Mg-3 Mg/3 Ml Soln) 3 ml INHALATION RT-QID [facility] Last Admin: 03/14/19 20:10 Dose: Not Given Documented by: Formoterol Fumarate (Perforomist) 20 mcg INHALATION RT-BID [facility] Last Admin: 03/14/19 20:10 Dose: Not Given Documented by: Furosemide (Lasix) 40 mg PO DAILY [facility] Last Admin: 03/14/19 08:34 Dose: 40 mg Documented by: Lactulose (Cephulac) 20 gm PO TID [facility] Last Admin: 03/14/19 21:20 Dose: Not Given Documented by: Levetiracetam (Keppra) 750 mg PO BID [facility] Last Admin: 03/14/19 21:19 Dose: 750 mg Documented by: Magnesium Oxide (Mag-Ox) 400 mg PO DAILY [facility] Last Admin: 03/14/19 08:35 Dose: 400 mg Documented by: Naloxone HCl (Narcan) 0.2 mg IV Q2M PRN PRN Reason: Opioid Reversal Pantoprazole Sodium (Protonix) 40 mg PO AC-BRKFST [facility] Last Admin: 03/14/19 08:34 Dose: 40 mg Documented by: Phytonadione (Vitamin K Oral) 10 mg PO DAILY [facility] Last Admin: 03/14/19 08:43 Dose: 10 mg Documented by: Rifaximin (Xifaxan) 550 mg PO BID [facility] Stop: 04/11/19 10:16 Last Admin: 03/14/19 21:19 Dose: 550 mg Documented by: Spironolactone (Aldactone) 100 mg PO DAILY [facility] Last Admin: 03/14/19 08:35 Dose: 100 mg Documented by: Tramadol HCl (Ultram) 100 mg PO BID PRN PRN Reason: Pain Last Admin: 03/14/19 18:46 Dose: 100 mg Documented by: Physical examination: VITAL SIGNS: 98.1, 106, 17, 11 , 96% room air GENERAL: laying in bed tired , lesslethargic ,spider nevi present EYES: Pupils equal. Conjunctiva pale. HEENT: External appearance of nose and ears normal, oral cavity grossly normal. NECK: JVD not raised; masses not palpable. HEART: [First and second heart sounds are normal; edema present. LUNGS: Respiratory rate increased, some wheezing decreased breath sounds at the bases. ABDOMEN: Soft, distended, dullness in the flanks nontender, liver spleen not pal pable, no masses palpable. PSYCH: Awake, answering simple questions INVESTIGATIONS, reviewed in the clinical context: duration 4.3 bun 19 crit 1.19 Previous testing White count 8.1 hemoglobin 10.9 potassium 4.6 creatinine 1.09 Patient crit was 0.71 on February 19 bilirubin 3.3 AST 45 ALT 23 albumin 2.3 pro time 16 Assessment: -Large ascites secondary to cirrhosis causing shortness of breath, slow to respond -Acute fluid overload from cirrhosis -COPD -Chronic nicotine dependence patient cigarette smoker - cirrhosis secondary to alcoholism -Hypoalbuminemia secondary to cirrhosis -Auto anticoagulated due to cirrhosis - portal hypertension -Hepatic encephalopathy, on lactulose, slow to respond -Increasing medical debility Plan: continue current medication treatment plan. Prognosis guarded. Follow with GI.had strict I's and O's
[2019-03-15] MEDS: traMADol 50 MG TAB PO PRN (08:41)
[2019-03-15] MEDS: LACTULOSE 20 GM/30 ML CUP PO SCH ×3 (08:42→23:06)
[2019-03-15] MEDS: MAGNESIUM OXIDE 400 MG TAB PO SCH (08:42)
[2019-03-15] MEDS: SPIRONOLACTONE 25 MG TAB PO SCH (08:42)
[2019-03-15] MEDS: PANTOPRAZOLE 40 MG TABLET PO SCH (08:42)
[2019-03-15] MEDS: FUROSEMIDE 40 MG TAB PO SCH (08:42)
[2019-03-15] MEDS: RIFAXIMIN 550 MG TABLET PO SCH (08:43)
[2019-03-15] MEDS: FORMOTEROL FUMARATE 20 MCG/2 ML NEBU INHALATION SCH ×2 (09:07→19:21)
[2019-03-15] MEDS: IPRATROPIUM-ALBUTEROL 3 ML NEB INHALATION SCH ×4 (09:07→19:21)
[2019-03-15] MEDS: PHYTONADIONE ORAL 5 MG/5 ML ORAL.SYRG PO SCH (10:03)
--- NOTE | 2019-03-15 22:44 | P.PN ---
Subjective Progress Note Date: 03/15/19 Principal diagnosis: Decompensated alcoholic cirrhosis with ascites and hepatic encephalopathy Patient seen sitting bedside. Tolerating diet. No nausea or vomiting. Patient had 2 bowel movements today. Objective - Vital Signs Vital signs: Vital Signs Temp 97.5 F L 03/15/19 19:22 Pulse 103 H 03/15/19 19:22 Resp 17 03/15/19 19:22 BP 130/75 03/15/19 19:22 Pulse Ox 97 03/15/19 19:22 Intake & Output 03/15/19 03/15/19 03/16/19 06:59 18:59 06:59 Intake Total 150 100 Output Total 200 Balance 150 -100 Intake: Oral 150 100 Output: Urine 200 Other: Voiding Method Diaper Bedside Commode Incontinent Diaper Incontinent # Voids 2 2 # Bowel Movements 2 2 - Exam On physical examination, patient appears comfortable in no apparent distress. HEAD: Normocephalic, atraumatic. EYES: No scleral icterus. No conjunctival injection. MOUTH: No lesions, tongue midline. NECK: Trachea midline, no gross abnormalities. CHEST: Clear to auscultation with no wheezing or rhonchi appreciated. HEART: Regular rate and rhythm. ABDOMEN: Soft, distended with positive fluid wave. Bowel sounds are positive. No organomegaly. No guarding or rigidity. EXTREMITIES: No pedal edema. SKIN: No rashes, no jaundice. NEUROLOGIC: Alert and oriented x2, with mild asterixis noted. - Labs CBC & Chem 7: 03/10/19 15:18 03/13/19 08:32 Assessment and Plan (1) Alcoholic cirrhosis of liver with ascites Narrative/Plan: 58-year-old female with a medical history significant for decompensated alcohol cirrhosis for which the patient has been abstinent from alcohol for approximately 6 months who presented with worsening abdominal distention and confusion. Patient had been noncompliant with lactulose therapy due to social situation as she lives on the top low two-story house and does not have access to a toilet on the second floor. She was scheduled for paracentesis previously which was not performed secondary to antiplatelet agent which is currently being held. Current Visit: No Status: Acute Code(s): K70.31 - ALCOHOLIC CIRRHOSIS OF L IVCHARLY WITH ASCITES SNOMED Code(s): 913609633 (2) Ascites Current Visit: Yes Status: Acute Code(s): R18.8 - OTHER ASCITES SNOMED Code(s): 034594224 (3) Hepatic encephalopathy Current Visit: Yes Status: Acute Code(s): K72.90 - HEPATIC FAILURE, UNSPECIFIED WITHOUT COMA SNOMED Code(s): 36160004 Plan: Supportive care Okay for sodium restricted diet Continue lactulose titrated to 3 bowel movements daily, can increase to 4 times a day if patient is not meeting necessary number of bowel movements Continue rifaximin therapy Continue Lasix and Aldactone Continue alcohol abstinence Hold antiplatelet therapy for paracentesis Thank you for allowing us to participate in the care of the patient we will continue to follow
--- NOTE | 2019-03-15 23:34 | P.PN ---
Progress Note - Text Progress Note Date: 03/15/19 Chief Complaint: Distended abdomen Interval history: This is a pleasant 58-year-old patient who follows with Dr. Rosalina Donnelly. Chronic stable medical conditions include COPD, seizure disorder, coronary artery disease with a history of [place],alcohol induced cirrhosis, portal hypertension. Follows with sanford PA. Patient was heavy alcohol drinker up to go 6 months ago. Patient was in the hospital a few weeks ago with his complications of chronic liver disease. And cirrhosis. Patient now presents with worsening abdominal distention and increasing edema. Decrease activity and also noticed to be increasingly confused. Tired rundown. Not able to eat much. No fever no chills. Admitted with large ascites, secondary to cirrhosis, acute fluid overload, COPD exacerbation, hepatic encephalopathy. Started on lactulose diuretics. Today-sitting upon a chair. Tired. Eating a bit better. Distended abdomen. Edema present. Who is in some questions. Review of systems: Was done for constitutional, cardiovascular, GI, pulmonary. relevant finding as above Active Medications Albuterol Sulfate (Ventolin Nebulized) 2.5 mg INHALATION RT-Q4H PRN PRN Reason: Shortness Of Breath Albuterol/Ipratropium (Duoneb 0.5 Mg-3 Mg/3 Ml Soln) 3 ml INHALATION RT-QID [facility] Last Admin: 03/15/19 19:21 Dose: Not Given Documented by: Formoterol Fumarate (Perforomist) 20 mcg INHALATION RT-BID [facility] Last Admin: 03/15/19 19:21 Dose: Not Given Documented by: Furosemide (Lasix) 40 mg PO DAILY [facility] Last Admin: 03/15/19 08:42 Dose: 40 mg Documented by: Lactulose (Cephulac) 20 gm PO TID [facility] Last Admin: 03/15/19 23:06 Dose: 20 gm Documented by: Levetiracetam (Keppra) 750 mg PO BID [facility] Last Admin: 03/15/19 23:06 Dose: 750 mg Documented by: Magnesium Oxide (Mag-Ox) 400 mg PO DAILY [facility] Last Admin: 03/15/19 08:42 Dose: 400 mg Documented by: Naloxone HCl (Narcan) 0.2 mg IV Q2M PRN PRN Reason: Opioid Reversal Pantoprazole Sodium (Protonix) 40 mg PO AC-BRKFST [facility] Last Admin: 03/15/19 08:42 Dose: 40 mg Documented by: Phytonadione (Vitamin K Oral) 10 mg PO DAILY [facility] Last Admin: 03/15/19 10:03 Dose: 10 mg Documented by: Rifaximin (Xifaxan) 550 mg PO BID [facility] Stop: 04/11/19 10:16 Last Admin: 03/15/19 08:43 Dose: 550 mg Documented by: Spironolactone (Aldactone) 100 mg PO DAILY [facility] Last Admin: 03/15/19 08:42 Dose: 100 mg Documented by: Tramadol HCl (Ultram) 100 mg PO BID PRN PRN Reason: Pain Last Admin: 03/15/19 08:41 Dose: 100 mg Documented by: Physical examination: VITAL SIGNS: 97.5, 106, 20, 11 5/73, 96% room air GENERAL: Sitting upon a chair, a bit more awake,spider nevi present EYES: Pupils equal. Conjunctiva pale. HEENT: External appearance of nose and ears normal, oral cavity grossly normal. NECK: JVD not raised; masses not palpable. HEART: [First and second heart sounds are normal; edema present. LUNGS: Respiratory rate increased, some wheezing decreased breath sounds at the bases. ABDOMEN: Soft, distended, dullness in the flanks nontender, liver spleen not palpable, no masses palpable. PSYCH: Awake, answering simple questions INVESTIGATIONS, reviewed in the clinical context: duration 4.3 bun 19 crit 1.19 Previous testing White count 8.1 hemoglobin 10.9 potassium 4.6 creatinine 1.09 Patient crit was 0.71 on February 19 bilirubin 3.3 AST 45 ALT 23 albumin 2.3 pro time 16 Assessment: -Large ascites secondary to cirrhosis causing shortness of breath, slow to respond -Acute fluid overload from cirrhosis -COPD -Chronic nicotine dependence patient cigarette smoker - cirrhosis secondary to alcoholism -Hypoalbuminemia secondary to cirrhosis -Auto anticoagulated due to cirrhosis - portal hypertension -Hepatic encephalopathy, on lactulose, slow to respond -Increasing medical debility Plan: Discussed with Dr. Galen Ruiz from radiology. He will try to arrange for paracentesis. Other medication treatment plan to continue. Patient went [facility] will go to [facility]
[2019-03-16] MEDS: RIFAXIMIN 550 MG TABLET PO SCH ×3 (00:07→22:11)
[2019-03-16 08:00] LABS: Calcium 8.6 mg/dL (8.4-10.2); Potassium 3.9 mmol/L (3.5-5.1)
[2019-03-16] MEDS ORDERED: PROCHLORPERAZINE SUPPOSITORY 25 MG SUPP RECTAL PRN (08:29)
[2019-03-16 08:32] LABS: Basophils % (A) 0 %; Eosinophils % (A) 0 %; HCT 30.5 % (34.0-46.0); Lymphocytes # (A) 0.8 k/uL (1.0-4.8); Lymphocytes % (A) 8 %; MCH 33.2 pg (25.0-35.0); MCHC 32.8 g/dL (31.0-37.0); MCV 101.3 fL (80.0-100.0); Macrocytosis Slight; Mean Platelet Volume 8.4; Monocytes # (A) 0.5 k/uL (0-1.0); Monocytes % (A) 5 %; Neutrophils # (A) 8.8 k/uL (1.3-7.7); Neutrophils % (A) 86 %; Platelet Count 249 k/uL (150-450); RBC 3.01 m/uL (3.80-5.40); RDW 14.6 % (11.5-15.5); WBC 10.2 k/uL (3.8-10.6)
[2019-03-16] MEDS: IPRATROPIUM-ALBUTEROL 3 ML NEB INHALATION SCH ×4 (09:03→19:54)
[2019-03-16] MEDS: FORMOTEROL FUMARATE 20 MCG/2 ML NEBU INHALATION SCH ×2 (09:03→19:53)
[2019-03-16 09:04] LABS: Poikilocytosis (M) Present; Target Cells Present
[2019-03-16 13:28] LABS: INR 1.6 (<1.2); Prothrombin Time 15.6 sec (9.0-12.0)
[2019-03-16] MEDS: PANTOPRAZOLE 40 MG TABLET PO SCH (15:43)
[2019-03-16] MEDS: FUROSEMIDE 40 MG TAB PO SCH (15:43)
[2019-03-16] MEDS: PHYTONADIONE ORAL 5 MG/5 ML ORAL.SYRG PO SCH (15:43)
[2019-03-16] MEDS: SPIRONOLACTONE 25 MG TAB PO SCH (15:43)
[2019-03-16] MEDS: MAGNESIUM OXIDE 400 MG TAB PO SCH (15:43)
[2019-03-16] MEDS: LACTULOSE 20 GM/30 ML CUP PO SCH ×2 (15:46→22:11)
[2019-03-16] MEDS: ALBUMIN HUMAN 25% 50 ML in EMPTY BAG 1 BAG IVPB SCH ×4 (17:15→18:44)
[2019-03-16] MEDS ORDERED: LACTULOSE 200 GM/300 ML (FROM 1/2 GAL JUG) RECTAL SCH ×2 (18:00→21:00)
--- NOTE | 2019-03-16 21:51 | P.PN ---
Subjective Progress Note Date: 03/16/19 Principal diagnosis: Decompensated alcoholic cirrhosis with ascites and hepatic encephalopathy Patient seen sitting bedside, patient did have some nausea and vomiting today. Denying any abdominal pain. Denying any other acute complaints. Objective - Vital Signs Vital signs: Vital Signs Temp 97.7 F 03/16/19 02:01 Pulse 90 03/16/19 15:25 Resp 16 03/16/19 15:25 BP 101/64 03/16/19 15:25 Pulse Ox 96 03/16/19 15:25 Intake & Output 03/16/19 03/16/19 03/17/19 06:59 18:59 06:59 Other: Voiding Method Bedside Commode Diaper Incontinent - Exam On physical examination, patient appears comfortable in no apparent distress. HEAD: Normocephalic, atraumatic. EYES: No scleral icterus. No conjunctival injection. MOUTH: No lesions, tongue midline. NECK: Trachea midline, no gross abnormalities. ABDOMEN: Soft, distended with positive fluid wave. Bowel sounds are positive. No organomegaly. No guarding or rigidity. EXTREMITIES: No pedal edema. SKIN: No rashes, no jaundice. NEUROLOGIC: Alert and oriented x1, with mild asterixis noted. - Labs CBC & Chem 7: 03/16/19 07:22 03/16/19 07:22 Labs: Abnormal Lab Results - Last 24 Hours (Table) 03/16/19 03/16/19 03/16/19 Range/Units 07:22 07:22 12:57 RBC 3.01 L (3.80-5.40) m/uL Hgb 10.0 L (11.4-16.0) gm/dL Hct 30.5 L (34.0-46.0) % MCV 101.3 H (80.0-100.0) fL Neutrophils # 8.8 H (1.3-7.7) k/uL Lymphocytes # 0.8 L (1.0-4.8) k/uL PT 15.6 H (9.0-12.0) sec INR 1.6 H (<1.2) Sodium 131 L (137-145) mmol/L Chloride 97 L (98-107) mmol/L BUN 22 H (7-17) mg/dL Creatinine 1.14 H (0.52-1.04) mg/dL Glucose 72 L (74-99) mg/dL Assessment and Plan (1) Alcoholic cirrhosis of liver with ascites Narrative/Plan: 58-year-old female with a medical history significant for decompensated alcohol cirrhosis for which the patient has been abstinent from alcohol for approxi mately 6 months who presented with worsening abdominal distention and confusion. Patient had been noncompliant with lactulose therapy due to social situation as she lives on the top low two-story house and does not have access to a toilet on the second floor. She was scheduled for paracentesis previously which was not performed secondary to antiplatelet agent which is currently being held. Current Visit: No Status: Acute Code(s): K70.31 - ALCOHOLIC CIRRHOSIS OF LIVER WITH ASCITES SNOMED Code(s): 337516483 (2) Ascites Current Visit: Yes Status: Acute Code(s): R18.8 - OTHER ASCITES SNOMED Code(s): 081221806 (3) Hepatic encephalopathy Current Visit: Yes Status: Acute Code(s): K72.90 - HEPATIC FAILURE, UNSPECIFIED WITHOUT COMA SNOMED Code(s): 01571968 Plan: Supportive care Okay for sodium restricted diet Continue lactulose titrated to 3 bowel movements daily, switched to rectal today due to nausea and vomiting Continue rifaximin therapy Continue Lasix and Aldactone Continue alcohol abstinence Hold antiplatelet therapy for paracentesis Thank you for allowing us to participate in the care of the patient we will continue to follow
--- NOTE | 2019-03-16 21:52 | P.PN ---
Progress Note - Text Progress Note Date: 03/16/19 Chief Complaint: Distended abdomen Interval history: This is a pleasant 58-year-old patient who follows with Dr. Rosalina Donnelly. Chronic stable medical conditions include COPD, seizure disorder, coronary artery disease with a history of [place],alcohol induced cirrhosis, portal hypertension. Follows with [facility]. Patient was heavy alcohol drinker up to go 6 months ago. Patient was in the hospital a few weeks ago with his complications of chronic liver disease. And cirrhosis. Patient now presents with worsening abdominal distention and increasing edema. Decrease activity and also noticed to be increasingly confused. Tired rundown. Not able to eat much. No fever no chills. Admitted with large ascites, secondary to cirrhosis, acute fluid overload, COPD exacerbation, hepatic encephalopathy. Started on lactulose diuretics. Today-saw the patient earlier today. Tired. Patient's daughter and friend at the bedside.. Earlier discussed with Dr. Humphreys from interventional radiology. Given liver failure options are limited. He has agreed to proceed with l paracentesis. Later again spoke with the patient and family. Tolerated agreeable to same. Later in the day about 7.5 L of peritoneal fluid was removed. Review of systems: Was done for constitutional, cardiovascular, GI, pulmonary. relevant finding as above Active Medications Albuterol Sulfate (Ventolin Nebulized) 2.5 mg INHALATION RT-Q4H PRN PRN Reason: Shortness Of Breath Albuterol/Ipratropium (Duoneb 0.5 Mg-3 Mg/3 Ml Soln) 3 ml INHALATION RT-QID [facility] Last Admin: 03/16/19 19:54 Dose: Not Given Documented by: Formoterol Fumarate (Perforomist) 20 mcg INHALATION RT-BID [facility] Last Admin: 03/16/19 19:53 Dose: Not Given Documented by: Furosemide (Lasix) 40 mg PO DAILY [facility] Last Admin: 03/16/19 15:43 Dose: Not Given Documented by: Lactulose (Cephulac) 200 gm RECTAL Q6H [facility] Levetiracetam (Keppra) 750 mg PO BID [facility] Last Admin: 03/16/19 15:43 Dose: Not Given Documented by: Magnesium Oxide (Mag-Ox) 400 mg PO DAILY [facility] Last Admin: 03/16/19 15:43 Dose: Not Given Documented by: Naloxone HCl (Narcan) 0.2 mg IV Q2M PRN PRN Reason: Opioid Reversal Pantoprazole Sodium (Protonix) 40 mg PO AC-BRKFST [facility] Last Admin: 03/16/19 15:43 Dose: Not Given Documented by: Phytonadione (Vitamin K Oral) 10 mg PO DAILY [facility] Last Admin: 03/16/19 15:43 Dose: Not Given Documented by: Prochlorperazine Maleate (Compazine) 25 mg RECTAL BID PRN PRN Reason: Nausea And Vomiting Last Admin: 03/16/19 10:56 Dose: 25 mg Documented by: Rifaximin (Xifaxan) 550 mg PO BID [facility] Stop: 04/11/19 10:16 Last Admin: 03/16/19 15:43 Dose: Not Given Documented by: Spironolactone (Aldactone) 100 mg PO DAILY [facility] Last Admin: 03/16/19 15:43 Dose: Not Given Documented by: Tramadol HCl (Ultram) 100 mg PO BID PRN PRN Reason: Pain Last Admin: 03/15/19 08:41 Dose: 100 mg Documented by: Physical examination: VITAL SIGNS: 97.7, 91, 18, 103/64, 97% room air GENERAL: Laying in bed, tired EYES: Pupils equal. Conjunctiva pale. HEENT: External appearance of nose and ears normal, oral cavity grossly normal. NECK: JVD not raised; masses not palpable. HEART: [First and second heart sounds are normal; edema present. LUNGS: Respiratory rate increased, some wheezing decreased breath sounds at the bases. ABDOMEN: Soft, distended, dullness in the flanks nontender, liver spleen not palpable, no masses palpable. PSYCH: Awake, answering simple questions INVESTIGATIONS, reviewed in the clinical context: White count 10.2 hemoglobin 10 potassium 3.9 bun 22 crit 1.14 Pro time 15.6 Previous testing White count 8.1 hemoglobin 10.9 potassium 4.6 creatinine 1.09 Patient crit was 0.71 on February 19 bilirubin 3.3 AST 45 ALT 23 albumin 2.3 pro time 16 Assessment: -Large ascites secondary to cirrhosis causing shortness of breath, slow to re spond -Large volume paracentesis was done today about 7.5 L removed. -Acute fluid overload from cirrhosis -COPD -Chronic nicotine dependence patient cigarette smoker - cirrhosis secondary to alcoholism -Hypoalbuminemia secondary to cirrhosis -Auto anticoagulated due to cirrhosis - portal hypertension -Hepatic encephalopathy, on lactulose, slow to respond -Increasing medical debility Plan: Patient also received 50 g of albumin after procedure. He had been discussed earlier as above. Total time spent today was 45 minutes about 30 minutes above for discussion.
--- NOTE | 2019-03-16 22:58 | US ---
Therapeutic paracentesis. DATE OF EXAM: 03/16/2019 CLINICAL HISTORY: Ascites The procedure was discussed with the patient. The risks, complications, benefits, and alternatives we re discussed and any questions were answered. Informed consent was obtained. The patient was placed s upine on the ultrasound table and prepped and draped in the usual sterile fashion. All elements of maximal barrier technique were utilized. Under ultrasound guidance, access into the right lower quadrant was obtained, via the paracentesis catheter system and direct ultrasound guidanc e. Approximately 7.9 liters of straw-colored fluid was removed. The patient was stable throughout the pr ocedure and remained stable upon discharge from Department of Radiology. IMPRESSION: Successful therapeutic paracentesis under ultrasound guidance.
[2019-03-17] MEDS ORDERED: SODIUM CHLORIDE 0.9% 500 ML 500 ML IV ONE (01:50)
[2019-03-17] MEDS ORDERED: DILTIAZEM 125 MG in SODIUM CHLORIDE 0.9% 100 ML IV SCH (02:15)
[2019-03-17] MEDS: NOREPINEPHRINE 4 MG in SODIUM CHLORIDE 0.9% 250 ML IV SCH ×4 (02:30→22:06)
[2019-03-17 02:31] LABS: Glucose,Whole Blood 35 mg/dL (75-99)
[2019-03-17 02:33] LABS: Glucose,Whole Blood 108 mg/dL (75-99)
[2019-03-17] MEDS ORDERED: DILTIAZEM DRIP BOLUS FROM BAG 1 MG SOLN IV ONE ×2 (02:50→03:37)
[2019-03-17 02:53] LABS: HGB 8.9 gm/dL (11.4-16.0); MCH 33.3 pg (25.0-35.0); MCHC 32.8 g/dL (31.0-37.0); MCV 101.5 fL (80.0-100.0); Macrocytosis Slight; Mean Platelet Volume 7.6; Platelet Count 180 k/uL (150-450); RBC 2.66 m/uL (3.80-5.40); RDW 15.8 % (11.5-15.5); WBC 15.3 k/uL (3.8-10.6)
[2019-03-17 03:25] LABS: Magnesium 1.8 mg/dL (1.6-2.3); Potassium 3.6 mmol/L (3.5-5.1)
[2019-03-17 03:26] LABS: Band Neutrophils % 5 %; Neutrophils % (M) 95 %; Nucleated Red Blood Cells 0 /100 WBC (0-0); Total Cells Counted 100
[2019-03-17 03:27] LABS: Target Cells Present
[2019-03-17 03:59] LABS: Glucose,Whole Blood 89 mg/dL (75-99)
[2019-03-17] MEDS ORDERED: Potassium Replacement Protocol 1 EACH MISC MISCELLANE PRN (05:59)
[2019-03-17] MEDS ORDERED: Magnesium Replacement Protocol 1 EACH MISC MISCELLANE PRN (06:00)
[2019-03-17] MEDS: PANTOPRAZOLE 40 MG TABLET PO SCH (06:01)
[2019-03-17] MEDS: POTASSIUM CHLORIDE 20 MEQ in WATER FOR INJECTION 1 100ML.BAG IVPB SCH ×3 (06:21→11:48)
[2019-03-17 06:23] LABS: Glucose,Whole Blood 77 mg/dL (75-99)
[2019-03-17] MEDS: MAGNESIUM SULFATE-D5W PMX 1 GM in DEXTROSE/WATER 1 100ML.BAG IVPB SCH ×2 (06:26→09:40)
[2019-03-17] MEDS ORDERED: DEXTROSE 10 % IN WATER 250 ML IV ONE (06:41)
[2019-03-17 07:02] LABS: Glucose,Whole Blood 191 mg/dL (75-99)
[2019-03-17] MEDS: IPRATROPIUM-ALBUTEROL 3 ML NEB INHALATION SCH ×4 (07:34→20:04)
[2019-03-17] MEDS: FORMOTEROL FUMARATE 20 MCG/2 ML NEBU INHALATION SCH ×2 (07:34→20:04)
[2019-03-17] MEDS: LACTULOSE 20 GM/30 ML CUP PO SCH ×4 (09:40→20:55)
[2019-03-17] MEDS: DILTIAZEM ORAL 30 MG TAB PO SCH ×2 (09:42→20:55)
[2019-03-17] MEDS: RIFAXIMIN 550 MG TABLET PO SCH ×2 (09:43→20:55)
[2019-03-17] MEDS: MAGNESIUM OXIDE 400 MG TAB PO SCH (09:43)
[2019-03-17] MEDS: FUROSEMIDE 40 MG TAB PO SCH (09:43)
[2019-03-17] MEDS: SPIRONOLACTONE 25 MG TAB PO SCH (09:43)
[2019-03-17] MEDS: PHYTONADIONE ORAL 5 MG/5 ML ORAL.SYRG PO SCH (09:47)
--- NOTE | 2019-03-17 09:47 | CONS ---
CONSULTATION Ej Vidal is a 58-year-old lady with a history of cirrhosis of the liver secondary to alcoholism, but she has been sober for the last couple of months. I was asked to see her mainly because of an episode of atrial fibrillation that appears to have been paroxysmal requiring a Cardizem drip and now she is back in sinus rhythm. Yesterday, she had a have a therapeutic paracentesis under ultrasound guidance performed for what seemed to be a significant amount of ascites and almost more than 7 L of straw- colored fluid was taken out. This lady has multiple comorbid conditions and has apparently been sober from at least November or so. She sees Dr. Donnelly. She has chronic multiple comorbid conditions in the form of COPD, alcoholism, seizure disorder and portal hypertension with some episodes of GI bleeding as well in the past. She was admitted to the hospital, had a thoracenteses performed yesterday and then developed atrial fibrillation and I was asked to see her in this regard. This morning, she is not very communicative, she is a sinus rhythm on a small dose of Levophed. Hemodynamically fairly stable with a very small dose of Levophed and has decent urine output she has no major symptoms. She seems to be disoriented and I am not sure if this is related to hepatitic encephalopathy. On reviewing the chart, there is not much information available on her. There is no detailed information whether she has any underlying coronary artery disease or not. PAST MEDICAL HISTORY: 1. Alcoholism with liver disease. 2. Alcoholism with encephalopathy. 3. Question of myocardial infarction. 4. History of seizure disorder. 5. She is being considered for liver transplantation and quit smoking as of 6 7 months ago. She is status post heart catheterization in the past, but I am unable to find any details here in this chart in the hospital. PHYSICAL EXAMINATION: Blood pressure is about 100 systolic, 60 diastolic, pulse rate in the 80s, sinus. JVD 1 cm. No carotid bruit, S1-S2 heard normally. No significant murmurs. Lungs reveal diminished air entry both bases. Abdomen is distended, lower extremities reveal diminished pulses. Central nervous system assessment was not performed. IMPRESSION: 1. Episode of paroxysmal atrial fib, or probable PSVT, now back in sinus rhythm off Cardizem drip. 2. Large ascites status post paracentesis of more than 7 L. 3. History of smoking and chronic obstructive pulmonary disease. 4. Alcoholic cirrhosis of the liver. 5. History of hepatic encephalopathy. RECOMMENDATIONS: I am recommending that we add a small dose of Cardizem or a beta felicitas, but right now her pressure is low. She is still on a small dose of Levophed, so I am recommending that once the Levophed is off, place her on 30 mg of Cardizem b.i.d. p.o. and obtain echocardiogram to assess LV function. Based on this, will make further recommendations. I discussed my thoughts in detail with the patient. I am not sure how much he comprehends. Thank you very much for the consult. MMAGUS / IJN: [id number] / ARLEEN
--- NOTE | 2019-03-17 11:53 | ECHOF ---
Referral Reason:eval. EF MEASUREMENTS -------- HEIGHT: 170.2 cm WEIGHT: 63.5 kg BP: IVSd: 0.8 cm (0.6 - 1.1) LVIDd: 4.0 cm (3.9 - 5.3) LVPWd: 0.8 cm (0.6 - 1.1) IVSs: 1.2 cm LVIDs: 2.6 cm LVPWs: 1.3 cm Ao Diam: 2.3 cm (2.0 - 3.7) AV Cusp: 1.8 cm (1.5 - 2.6) LA Diam: 3.5 cm (2.7 - 3.8) MV EXCURSION: 13.536 mm (> 18.000) MV EF SLOPE: 108 mm/s (70 - 150) EPSS: 1.0 cm MV E Jamie: 1.14 m/s MV DecT: 171 ms MV A Jamie: 0.75 m/s MV E/A Ratio: 1.52 RAP: 5.00 mmHg RVSP: 21.57 mmHg FINDINGS -------- Sinus rhythm. This was a technically difficult study with suboptimal views. Pt. is combative The left ventricular size is normal. Left ventricular wall thickness is normal. Overall left vent ricular systolic function is normal with, an EF between 55 - 60 %. The right ventricle is normal in size. The left atrial size is normal. The right atrial size is normal. Aortic valve is trileaflet and is mildly thickened. The mitral valve is normal. The mitral valve leaflets are mildly thickened. There is trace mitral regurgitation. The tricuspid valve appears structurally normal. Trace tricuspid regurgitation present. Right annalee tricular systolic pressure is normal at < 35 mmHg. There is no pulmonic regurgitation present. The aortic root size is normal. IVC Not well visulized. There is no pericardial effusion. Large Pleural Effusion. CONCLUSIONS -------- 1. Sinus rhythm. 2. This was a technically difficult study with suboptimal views. 3. Pt. is combative 4. The left ventricular size is normal. 5. Left ventricular wall thickness is normal. 6. Overall left ventricular systolic function is normal with, an EF between 55 - 60 %. 7. The right ventricle is normal in size. 8. The left atrial size is normal. 9. The right atrial size is normal. 10. Aortic valve is trileaflet and is mildly thickened. 11. The mitral valve is normal. 12. The mitral valve leaflets are mildly thickened. 13. There is trace mitral regurgitation. 14. The tricuspid valve appears structurally normal. 15. Trace tricuspid regurgitation present. 16. Right ventricular systolic pressure is normal at < 35 mmHg. 17. There is no pulmonic regurgitation present. 18. The aortic root size is normal. 19. IVC Not well visulized. 20. There is no pericardial effusion. 21. Large Pleural Effusion. HISTORIC SITES SUPERVISOR: Karina Mills RDCS
[2019-03-17 12:53] LABS: Glucose,Whole Blood 112 mg/dL (75-99)
--- NOTE | 2019-03-17 12:54 | XR ---
EXAMINATION TYPE: XR chest 1V portable DATE OF EXAM: 03/17/2019 COMPARISON: 03/10/2019 HISTORY: Liver failure, shortness of breath TECHNIQUE: Single frontal view of the chest is obtained. FINDINGS: Left lower lobe consolidation and pleural effusion stable. No pneumothorax. Heart size sta ble. Findings are similar to the prior exam. Previous fracture involving the posterior right rib cage noted. IMPRESSION: Stable left-sided consolidation and pleural effusion
[2019-03-17 13:11] VITALS: BMI 21.9
[2019-03-17] MEDS ORDERED: SODIUM CHLORIDE 0.9% 500 ML 250 ML IV ONE (15:09)
[2019-03-17 18:28] LABS: Glucose,Whole Blood 54 mg/dL (75-99)
[2019-03-17] MEDS ORDERED: DEXTROSE 10 % IN WATER 150 ML IV STA (18:33)
[2019-03-17] MEDS: ALBUMIN HUMAN 25% 50 ML in EMPTY BAG 1 BAG IVPB SCH ×2 (18:58→19:34)
[2019-03-17 18:59] LABS: Glucose,Whole Blood 85 mg/dL (75-99)
[2019-03-17] MEDS ORDERED: DEXTROSE 5% IN WATER 1,000 ML IV SCH (19:15)
--- NOTE | 2019-03-17 20:05 | P.PN ---
Progress Note - Text Progress Note Date: 03/17/19 Chief Complaint: Distended abdomen Interval history: This is a pleasant 58-year-old patient who follows with Dr. Rosalina Donnelly. Chronic stable medical conditions include COPD, seizure disorder, coronary artery disease with a history of [place],alcohol induced cirrhosis, portal hypertension. Follows with [facility]. Patient was heavy alcohol drinker up to go 6 months ago. Patient was in the hospital a few weeks ago with his complications of chronic liver disease. And cirrhosis. Patient now presents with worsening abdominal distention and increasing edema. Decrease activity and also noticed to be increasingly confused. Tired rundown. Not able to eat much. No fever no chills. Admitted with large ascites, secondary to cirrhosis, acute fluid overload, COPD exacerbation, hepatic encephalopathy. Started on lactulose diuretics. Had about 7.5 L of paracentesis done on March 16. Given albumin. Today-became hypotensive last night. Moved to the ICU. Given IV fluids. Patient more confused. Started third spacing again. Put on IV levo fed. Has become hypoglycemic. Glucose supplements. Somewhat restless. Patient's mother is here from [place]. At the bedside. Review of systems: Cannot be done as patient rather delirious Active Medications Albuterol Sulfate (Ventolin Nebulized) 2.5 mg INHALATION RT-Q4H PRN PRN Reason: Shortness Of Breath Albuterol/Ipratropium (Duoneb 0.5 Mg-3 Mg/3 Ml Soln) 3 ml INHALATION RT-QID [facility] Last Admin: 03/17/19 16:15 Dose: Not Given Documented by: Diltiazem HCl (Cardizem Oral) 30 mg PO BID [facility] Last Admin: 03/17/19 09:42 Dose: 30 mg Documented by: Formoterol Fumarate (Perforomist) 20 mcg INHALATION RT-BID [facility] Last Admin: 03/17/19 07:34 Dose: 20 mcg Documented by: Furosemide (Lasix) 40 mg PO DAILY [facility] Last Admin: 03/17/19 09:43 Dose: 40 mg Documented by: Norepinephrine Bitartrate 4 mg (/ Sodium Chloride) 254 mls @ 12.097 mls/hr IV .Q21H [facility]; Protocol Last Titration: 03/17/19 16:25 Dose: 0.1 mcg/kg/min, 24.195 mls/hr Documented by: Albumin Human 50 ml/ IV (Solution) 50 mls @ 50 mls/hr IVPB Q1H [facility] Stop: 03/17/19 20:29 Last Admin: 03/17/19 19:34 Dose: 50 mls/hr Documented by: Dextrose/Water (Dextrose 5%-Water Iv Soln) 1,000 mls @ 75 mls/hr IV .[id number] [facility] Last Admin: 03/17/19 19:13 Dose: 75 mls/hr Documented by: Lactulose (Cephulac) 20 gm PO QID [facility] Last Admin: 03/17/19 18:31 Dose: 20 gm Documented by: Levetiracetam (Keppra) 750 mg PO BID [facility] Last Admin: 03/17/19 09:43 Dose: 750 mg Documented by: Magnesium Oxide (Mag-Ox) 400 mg PO DAILY [facility] Last Admin: 03/17/19 09:43 Dose: 400 mg Documented by: Miscellaneous Information (Potassium Per Protocol) 1 each MISCELLANE DAILY PRN; Protocol PRN Reason: Per Protocol Miscellaneous Information (Magnesium Per Protocol) 1 each MISCELLANE DAILY PRN; Protocol PRN Reason: Per Protocol Naloxone HCl (Narcan) 0.2 mg IV Q2M PRN PRN Reason: Opioid Reversal Pantoprazole Sodium (Protonix) 40 mg PO AC-BRKFST [facility] Last Admin: 03/17/19 06:01 Dose: Not Given Documented by: Phytonadione (Vitamin K Oral) 10 mg PO DAILY [facility] Last Admin: 03/17/19 09:47 Dose: 10 mg Documented by: Prochlorperazine Maleate (Compazine) 25 mg RECTAL BID PRN PRN Reason: Nausea And Vomiting Last Admin: 03/16/19 10:56 Dose: 25 mg Documented by: Rifaximin (Xifaxan) 550 mg PO BID [facility] Stop: 04/11/19 10:16 Last Admin: 03/17/19 09:43 Dose: 550 mg Documented by: Spironolactone (Aldactone) 100 mg PO DAILY [facility] Last Admin: 03/17/19 09:43 Dose: 100 mg Documented by: Tramadol HCl (Ultram) 100 mg PO BID PRN PRN Reason: Pain Last Admin: 03/15/19 08:41 Dose: 100 mg Documented by: Physical examination: VITAL: 78, 23, 100/67, 94% GENERAL: Laying in bed, restless, moaning at times EYES: Pupils equal. Conjunctiva pale. HEENT: External appearance of nose and ears normal, oral cavity grossly normal. NECK: JVD not raised; masses not palpable. HEART: [First and second heart sounds are normal; edema increasing LUNGS: Respiratory rate increased, some wheezing decreased breath sounds at the bases. ABDOMEN: Soft, more distended, nontender, liver spleen not palpable, no masses palpable. PSYCH: Patient rather delirious and encephalopathic INVESTIGATIONS, reviewed in the clinical context: White count 10.2 hemoglobin 10 potassium 3.9 bun 22 crit 1.14 Pro time 15.6 Previous testing White count 8.1 hemoglobin 10.9 potassium 4.6 creatinine 1.09 Patient crit was 0.71 on February 19 bilirubin 3.3 AST 45 ALT 23 albumin 2.3 pro time 16 Assessment: -Large ascites secondary to cirrhosis causing shortness of breath, has followed up again following IV fluids today. -Large volume paracentesis - 7.5 L removed. -Acute fluid overload from cirrhosis -COPD -Chronic nicotine dependence patient cigarette smoker - cirrhosis secondary to alcoholism -Hypoalbuminemia secondary to cirrhosis -Auto anticoagulated due to cirrhosis - portal hypertension -Hepatic encephalopathy, on lactulose, worsening -Acute delirium worsening -Increasing medical debility -Hypotensive shock multifactorial, peripheral rodriguez requiring IV pressor support with levo fed Plan: In the ICU. Getting IV fluids. Getting dextrose supplements, Levothroid. Restless. Prognosis is not good. Discussed with Dr. Bravo from GI earlier. Did discuss with patient's mother the bedside. Patient progressively failing.
[2019-03-17 20:38] VITALS: TEMP 93.4
[2019-03-17] MEDS ORDERED: SODIUM BICARB 8.4% 50 ML SYR (1 MEQ/ML) ONE (22:10)
[2019-03-17] MEDS ORDERED: EPINEPHrine 10 ML SYRINGE (0.1 MG/ML) ONE (22:10)
[2019-03-17] MEDS ORDERED: DEXTROSE 10% IN WATER 1,000 ML BAG IV ONE (22:10)
[2019-03-17] MEDS ORDERED: DEXTROSE 50% SYRINGE 50 ML IVP ONE (22:10)
[2019-03-17 22:17] LABS: Glucose,Whole Blood 56 mg/dL (75-99)
[2019-03-17 22:26] LABS: Glucose,Whole Blood 158 mg/dL (75-99)
--- NOTE | 2019-03-17 23:03 | XR ---
EXAMINATION TYPE: XR chest 1V portable DATE OF EXAM: 03/17/2019 COMPARISON: Today HISTORY: Check tube placement TECHNIQUE: Single view. FINDINGS: Endotracheal tube is 2.5 cm from the leela. There is pulmonary edema. There is airspace infiltrates throughout the lungs. There is nasogastric tube in the stomach. There are chest leads. IMPRESSION: There is increasing airspace infiltrates compared to exam earlier today and this could be RDS or worsening congestive heart failure.
[2019-03-17 23:10] LABS: Anisocytosis Slight; HCT 28.6 % (34.0-46.0); HGB 8.6 gm/dL (11.4-16.0); Hypochromasia Marked; MCH 34.8 pg (25.0-35.0); MCHC 30.1 g/dL (31.0-37.0); Macrocytosis Marked; Platelet Count 144 k/uL (150-450); RBC 2.48 m/uL (3.80-5.40); RDW 16.7 % (11.5-15.5)
[2019-03-17] MEDS ORDERED: FUROSEMIDE 10 MG/ML 4 ML VIAL IV SCH (23:15)
--- NOTE | 2019-03-17 23:21 | P.PN ---
Subjective Progress Note Date: 03/17/19 Principal diagnosis: Decompensated alcoholic cirrhosis with ascites and hepatic encephalopathy Patient seen lying in bed with her mother bedside. She was brought to the ICU yesterday after developing hypotension. She did have paracentesis with 7.9 L of ascitic fluid removed and did receive albumin therapy. Objective - Vital Signs Vital signs: Vital Signs Temp 98.0 F 03/17/19 12:00 Pulse 78 03/17/19 12:33 Resp 28 H 03/17/19 12:33 BP 91/51 03/17/19 12:30 Pulse Ox 94 L 03/17/19 12:30 Intake & Output 03/16/19 03/17/19 03/17/19 18:59 06:59 18:59 Intake Total 159.079 552.869 Output Total 320 120 Balance -160.921 432.869 Intake: IV 60 120 0.9 NS 60 120 Intake, IV Titration 99.079 432.869 Amount Diltiazem 125 mg In 13.833 Sodium Chloride 0.9% 100 ml @ Per Protocol IV .Q0M [facility] Rx#:[id number] Norepinephrine 4 mg In 85.246 232.869 Sodium Chloride 0.9% 250 ml @ 0.05 MCG/KG/MIN 12. 097 mls/hr IV .Q21H [facility] Rx#:[id number] Potassium Chloride 20 meq 200 In Water For Injection 1 100ml.bag @ 50 mls/hr IVPB Q2H [facility] Rx#: [id number] Output: Urine 320 120 Other: Voiding Method Bedside Commode Indwelling Catheter Indwelling Catheter Diaper Incontinent - Exam On physical examination, patient appears comfortable in no apparent distress. HEAD: Normocephalic, atraumatic. EYES: No scleral icterus. No conjunctival injection. MOUTH: No lesions, tongue midline. NECK: Trachea midline, no gross abnormalities. ABDOMEN: Soft, less distended with positive fluid wave. Bowel sounds are positive. No organomegaly. No guarding or rigidity. EXTREMITIES: No pedal edema. SKIN: No rashes, no jaundice. NEUROLOGIC: Alert and oriented 0, seen lying in bed patient is agitated. - Labs CBC & Chem 7: 03/17/19 02:27 03/17/19 02:27 Labs: Abnormal Lab Results - Last 24 Hours (Table) 03/16/19 03/17/1903/17/20 Range/Units 12:57 02:09 02:27 WBC 15.3 H (3.8-10.6) k/uL RBC 2.66 L (3.80-5.40) m/uL Hgb 8.9 L (11.4-16.0) gm/dL Hct 27.0 L (34.0-46.0) % MCV 101.5 H (80.0-100.0) fL RDW 15.8 H (11.5-15.5) % Neutrophils # (Manual) 15.30 H (1.3-7.7) k/uL PT 15.6 H (9.0-12.0) sec INR 1.6 H (<1.2) Sodium (137-145) mmol/L Carbon Dioxide (22-30) mmol/L BUN (7-17) mg/dL Creatinine (0.52-1.04) mg/dL POC Glucose (mg/dL) 35 L (75-99) mg/dL 03/17/19 03/17/19 03/17/19 Range/Units 02:27 02:32 07:00 WBC (3.8-10.6) k/uL RBC (3.80-5.40) m/uL Hgb (11.4-16.0) gm/dL Hct (34.0-46.0) % MCV (80.0-100.0) fL RDW (11.5-15.5) % Neutrophils # (Manual) (1.3-7.7) k/uL PT (9.0-12.0) sec INR (<1.2) Sodium 131 L (137-145) mmol/L Carbon Dioxide 19 L (22-30) mmol/L BUN 23 H (7-17) mg/dL Creatinine 1.19 H (0.52-1.04) mg/dL POC Glucose (mg/dL) 108 H 191 H (75-99) mg/dL 03/17/19 Range/Units 12:49 WBC (3.8-10.6) k/uL RBC (3.80-5.40) m/uL Hgb (11.4-16.0) gm/dL Hct (34.0-46.0) % MCV (80.0-100.0) fL RDW (11.5-15.5) % Neutrophils # (Manual) (1.3-7.7) k/uL PT (9.0-12.0) sec INR (<1.2) Sodium (137-145) mmol/L Carbon Dioxide (22-30) mmol/L BUN (7-17) mg/dL Creatinine (0.52-1.04) mg/dL POC Glucose (mg/dL) 112 H (75-99) mg/dL Assessment and Plan (1) Alcoholic cirrhosis of liver with ascites Narrative/Plan: 58-year-old female with a medical history significant for decompensated alcohol cirrhosis for which the patient has been abstinent from alcohol for approximately 6 months who presented with worsening abdominal distention and confusion. Patient had been noncompliant with lactulose therapy due to social situation as she lives on the top low two-story house and does not have access to a toilet on the second floor. She was scheduled for paracentesis previously which was not performed secondary to antiplatelet agent, however was able to undergo the procedure yesterday was 7.9 L removed. Subsequently developed hypotension and was brought to the ICU for further care. Current Visit: No Status: Acute Code(s): K70.31 - ALCOHOLIC CIRRHOSIS OF LIVER WITH ASCITES SNOMED Code(s): 623894196 (2) Ascites Current Visit: Yes Status: Acute Code(s): R18.8 - OTHER ASCITES SNOMED Code(s): 209670289 (3) Hepatic encephalopathy Current Visit: Yes Status: Acute Code(s): K72.90 - HEPATIC FAILURE, UNSPECIFIED WITHOUT COMA SNOMED Code(s): 68797903 Plan: Supportive care Okay for sodium restricted diet as tolerated Continue lactulose titrated to 3 bowel movements daily Continue rifaximin therapy Continue Lasix and Aldactone Continue alcohol abstinence Patient's condition guarded due to multiple medical comorbidities including decompensated cirrhosis. Patient has previously also been unwilling to comply with medical therapy in this setting if her wishes are for minimal intervention Comfort Care should be considered Thank you for allowing us to participate in the care of the patient we will continue to follow
--- NOTE | 2019-03-17 23:35 | P.PN ---
Progress Note - Text Progress Note Date: 03/17/19 Briefly this is a 58-year-old female with a history of alcoholic hepatitis, portal hypertension, that was admitted with profound abdominal ascites and had a therapeutic paracentesis yesterday, she also was noted to have hepatic encephalopathy on presentation and also went into A. fib with RVR yesterday since then she's been off Cardizem and in sinus mechanism CODE BLUE called at about approximately 2218 and ACLS/CPR protocols were initiated the patient was noted to be in asystole and PA 6 doses of epinephrine, and 1 amp D50 AND bicarb. She was intubated, Patient eventually had ROSC at approx 22:35. Patient's physician Dr. Arreaga was notified by nursing
[2019-03-17 23:40] LABS: Glucose,Whole Blood 156 mg/dL (75-99)
[2019-03-17 23:47] LABS: Band Neutrophils % 4 %; Lymphocytes # (M) 2.45 k/uL (1.0-4.8); Monocytes # (M) 0.27 k/uL (0-1.0); Myelocytes # (M) 0.14 k/uL (0); Myelocytes % 1 %; Neutrophils % (M) 75 %; Nucleated Red Blood Cells 5 /100 WBC (0-0); Total Cells Counted 200; Toxic Vacuolation Present; WBC 13.6 k/uL (3.8-10.6)
[2019-03-17 23:51] LABS: Albumin 2.4 g/dL (3.5-5.0); Calcium 8.2 mg/dL (8.4-10.2); Magnesium 2.6 mg/dL (1.6-2.3); Phosphorus 6.4 mg/dL (2.5-4.5); Potassium 4.7 mmol/L (3.5-5.1); Total Protein 6.1 g/dL (6.3-8.2)
[2019-03-17 23:55] LABS: INR 3.8 (<1.2); Partial Thromboplastin Time 38.4 sec (22.0-30.0); Prothrombin Time 37.9 sec (9.0-12.0)
[2019-03-18] MEDS ORDERED: PIPERACILLIN-TAZOBACTAM 3.375 GM in SODIUM CHLORIDE 0.9% 100 ML IVPB SCH ×2
[2019-03-18 00:04] LABS: Lactic Acid, Venous 15.8 mmol/L (0.7-2.0)
[2019-03-18] MEDS ORDERED: SODIUM CHLORIDE 0.9% 150 ML with VASOPRESSIN 60 UNIT IV SCH ×2 (00:15)
[2019-03-18 00:17] LABS: ABG Base Excess -23.7 mmol/L; ABG Oxygen Saturation 89.8 % (94-97); ABG PCO2 39 mmHg (35-45); ABG PO2 94 mmHg (83-108); ABG TCO2 10 mmol/L (19-24); Allen Test Performed? Yes
[2019-03-18] MEDS ORDERED: SODIUM BICARB 8.4% 50 ML SYR (1 MEQ/ML) IV STA ×2 (00:18→00:34)
[2019-03-18 00:23] LABS: ABG HCO3 9 mmol/L (21-25); ABG PH 6.94 (7.35-7.45)
[2019-03-18] MEDS ORDERED: DEXTROSE 5% IN WATER 1,000 ML with SODIUM BICARB (1 MEQ/ML) 150 ML IV SCH (00:30)
[2019-03-18 00:55] LABS: Glucose,Whole Blood 148 mg/dL (75-99)
[2019-03-18] MEDS ORDERED: EPINEPHrine 10 ML SYRINGE (0.1 MG/ML) ONE (01:51)
[2019-03-18] MEDS ORDERED: SODIUM BICARB 8.4% 50 ML SYR (1 MEQ/ML) ONE (01:51)
[2019-03-18 03:24] VITALS: BP 40/20; PULSE 79; RESP 32
[2019-03-18 07:34] LABS: MCV 115.3 fL (80.0-100.0)
[2019-03-19] MEDS ORDERED: EMPTY BAG 1 BAG with PROPOFOL 1,000 MG IV SCH (23:00)
--- NOTE | 2019-03-19 23:07 | P.DS ---
Providers Date of admission: 03/10/19 17:10 Expected date of discharge: 03/18/19 Attending physician: Khanh Arreaga Consults: 03/10/19 17:13 Consult Physician Stat Consulting Provider: Yessenia Todd Consult Reason/Comments: Liver cirrhosis, hepatic encephalopathy Do you want consulting provider notified?: Yes 03/17/19 02:07 Consult Physician Stat Consulting Provider: Darci Todd Consult Reason/Comments: low bp, afib rvr Do you want consulting provider notified?: Yes 03/17/19 11:54 Consult Physician Routine Consulting Provider: Dorothy Cook Consult Reason/Comments: hepatorenal syndrome Do you want consulting provider notified?: Yes 03/17/19 22:47 Consult Physician Stat Consulting Provider: Evangelina Dunbar Consult Reason/Comments: ICU managment Do you want consulting provider notified?: Yes Primary care physician: Jazlyn Donnelly [facility] Course: Chief Complaint: Distended abdomen Interval history: This is a pleasant 58-year-old patient who follows with Dr. Rosalina Donnelly. Chronic stable medical conditions include COPD, seizure disorder, coronary artery disease with a history of [place],alcohol induced cirrhosis, portal hypertension. Follows with [facility]. Patient was heavy alcohol drinker up to go 6 months ago. Patient was in the hospital a few weeks ago with his complications of chronic liver disease. And cirrhosis. Patient now presents with worsening abdominal distention and increasing edema. Decrease activity and also noticed to be increasingly confused. Tired rundown. Not able to eat much. No fever no chills. Admitted with large ascites, secondary to cirrhosis, acute fluid overload, COPD exacerbation, hepatic encephalopathy. Started on lactulose diuretics. Had about 7.5 L of paracentesis done on March 16. Given albumin. Patient had to be transferred ICU. As she deteriorated. Became hypoglycemic. Patient also the asystole cardiac arrest. Eventually patient succumbed to her underlying condition. And . . Consultation: Dr. Bravo from [facility] Dr. Cook from nephrology Dr. Dubnar from critical care INVESTIGATIONS, reviewed in the clinical context: White count 10.2 hemoglobin 10 potassium 3.9 bun 22 crit 1.14 Pro time 15.6 Previous testing White count 8.1 hemoglobin 10.9 potassium 4.6 creatinine 1.09 Patient crit was 0.71 on February 19 bilirubin 3.3 AST 45 ALT 23 albumin 2.3 pro time 16 Cause of : -Alcoholic cirrhosis Other medical problems: -Large ascites secondary to cirrhosis causing shortness of breath, has followed up again following IV fluids today. -Large volume paracentesis - 7.5 L removed. -Acute fluid overload from cirrhosis -COPD -Chronic nicotine dependence patient cigarette smoker - cirrhosis secondary to alcoholism -Hypoalbuminemia secondary to cirrhosis -Auto anticoagulated due to cirrhosis - portal hypertension -Hepatic encephalopathy, on lactulose, worsening -Acute delirium worsening -Increasing medical debility -Hypotensive shock multifactorial, peripheral rodriguez requiring IV pressor support with levo fed Disposition: Patient Plan - Discharge Summary Discharge Rx Participant: Yes New Discharge Prescriptions: Discontinued traMADol HCL [Ultram] 100 mg PO BID PRN PRN Reason: Pain Salmeterol Xinafoate [Serevent Diskus] 1 puff INHALATION RT-BID levETIRAcetam [Keppra Oral Solution] 750 mg PO BID Magnesium Oxide [Mag-Ox] 400 mg PO DAILY Lactulose 20 gm PO BID PRN PRN Reason: Constipation Umeclidinium [place] [Incruse Ellipta] 1 puff INHALATION RT-DAILY Clopidogrel [Plavix] 75 mg PO DAILY Albuterol Inhaler [Ventolin Hfa Inhaler] 2 puff INHALATION RT-Q4H PRN PRN Reason: Shortness Of Breath Pantoprazole [Protonix] 40 mg PO DAILY Albuterol Nebulized [Ventolin Nebulized] 2.5 mg INHALATION RT-TID Ondansetron [Zofran] 4 - 8 mg PO BID PRN PRN Reason: Nausea Spironolactone [Aldactone] 100 mg PO BID #60 tab Furosemide [Lasix] 40 mg PO BID #60 tablet Patient Instructions/Handouts: Ascites (ED) Discharge Disposition: - Preliminary Cause of Preliminary Cause of : Alcoholic cirrhosis
--- NOTE | 2019-03-22 12:50 | CDI ---
Documentation Clarification Form Date: 03/22/19 From: Jackelin Enrique Phone: If you have a question about this query, please contact Abril Eduardo Probation Worker at [phone] between 8am and 5pm. Admit Date: 03/10/19 Discharge Date:03/18/19 Patient Name: Ej Vidal Visit Number: [id number] ATTENTION: The Clinical Documentation Specialists (CDI) and [facility] Coding Staff appreciate your assistance in clarifying documentation. Please respond to the clarification below the line at the bottom and electronically sign. The CDI & [facility] Coding staff will review the response and follow-up if needed. Please note: Queries are made part of the Legal Health Record. If you have any questions, please contact the author of this message via ITS. Dear Dr. Arreaga Documentation states: Patient admitted for alcoholic cirrhosis decompensation with ascites and hepatic encepahlopathy. History/Risk Factors: Alcoholic cirrhosis with ascites and fluid overload Clinical indicators: Decreased sodium, acute delirium Abnormal Sodium: Down to 130 by 03/17 Treatment: 2 liter sodium chloride bolus Clinical significance of diagnostic testing and treatment CANNOT be assumed or coded without physician documentation of significance if any. Please clarify what abnormal laboratory signifies: Disease process, please specify Infectious process, please specify Abnormal Lab Value Unable to determine Other, please specify Hyponatremia, hypervolemia , due to cirrhosis MTDD
--- NOTE | 2019-03-24 09:46 | CDI ---
Documentation Clarification Form Date: 03/24/2019 09:10:16 AM From: Margarita ARAIZA,CCDS,RN Admit Date: 03/10/2019 05:10:00 PM Patient Name: Ej Vidal Visit Number: [id number] Discharge Date: 03/18/2019 06:28:00 AM ATTENTION: The Clinical Documentation Specialists (CDI) and [facility] Coding Staff appreciate your assistance in clarifying documentation. Please respond to the clarification below the line at the bottom and electronically sign. The CDI & [facility] Coding staff will review the response and follow-up if needed. Please note: Queries are made part of the Legal Health Record. If you have any questions, please contact the author of this message via ITS. Dr. Khanh Arreaga Documentation states consult Nephrology for Hepatorenal syndrome in DS 03/19/2019 with Nephrology consult not available. History/Risk Factors: 58 yo admitted with large ascites, acute fluid overload, hepatic encephalopathy with increasing abdominal distention and edema, Paracentesis performed on 03/16/2019 with 7.5L removed. Treated for multifactorial shock with albumin and pressors. Clinical indicators: DS 03/19 notes Consult for hepatorenal syndrome: notes Previous testing 02/20 with creatinine of 0.71. Abnormal Creatinine of 1.71 noted on 03/17 with admission Cr of 1.09 BUN to 23 on 03/17 with admission 03/10 BUN of 17 Serum ammonia 03/10 of 120 to <9 on 03/16 with level @ 43 on 03/17 AST for 45 on 03/10 increased to 361 on 03/17 Alk Phosphorous 03/10 of 155 to 111 on 03/17 Total Bili of 3.3 on 03/10 to 3.0 on 03/17 Treatment: Lasix 60 mg IV 03/10 and PO Lasix 40 mg Po daily as tolerated with BP with Aldactone 100 mg bid , Albumin 50 mls times 4 on 03/16 and 50 mls times 2 on 03/17 lactulose, Levophed and Vasopressin. Clinical significance of diagnostic testing and treatment CANNOT be assumed or coded without physician documentation of significance if any. Please clarify clinical significance, if any, of abnormal labs ? GIANNA In the setting of Shock and Hepatorenal Syndrome GIANNA unknown etiology Abnormal Lab Value not clinically significant Unable to determine Other, please specify (Last Revision: November 2016) [place] I secondary to, prerenal MTDD
== END 2019-03-18 06:28 | disposition expired | DRG 432 ==
LOC: EC 13:20 → 4SSUR 17:10 → 2SICU 03-17 02:31
PROVIDERS: ADMIT Hospitalist; ATTEND Hospitalist
PROC: 0W9G3ZZ Drainage of Peritoneal Cavity, Percutaneous Approach (ICD-10-PCS; principal; 2019-03-16 08:30)
PROC: 5A12012 Performance of Cardiac Output, Single, Manual (ICD-10-PCS; 2019-03-17)
PROC: 0BH17EZ Insertion of Endotracheal Airway into Trachea, Via Natural or Artificial Opening (ICD-10-PCS; 2019-03-18)
PROC: 5A1935Z Respiratory Ventilation, Less than 24 Consecutive Hours (ICD-10-PCS; 2019-03-18)
DX: K70.31 Alcoholic cirrhosis of liver with ascites (principal); R40.2124 Coma scale, eyes open, to pain, 24 hours or more after hospital admission; D68.9 Coagulation defect, unspecified; I47.1 Supraventricular tachycardia; J44.1 Chronic obstructive pulmonary disease with (acute) exacerbation; K76.6 Portal hypertension; K86.1 Other chronic pancreatitis; R57.9 Shock, unspecified; E87.1 Hypo-osmolality and hyponatremia; N17.9 Acute kidney failure, unspecified; T17.418A Gastric contents in trachea causing other injury, initial encounter; I46.9 Cardiac arrest, cause unspecified; K72.90 Hepatic failure, unspecified without coma; D64.9 Anemia, unspecified; E88.09 Other disorders of plasma-protein metabolism, not elsewhere classified; I48.0 Paroxysmal atrial fibrillation; E16.2 Hypoglycemia, unspecified; E87.70 Fluid overload, unspecified; T47.3X6A Underdosing of saline and osmotic laxatives, initial encounter; F10.21 Alcohol dependence, in remission; F17.210 Nicotine dependence, cigarettes, uncomplicated; F41.9 Anxiety disorder, unspecified; G40.909 Epilepsy, unspecified, not intractable, without status epilepticus; I25.10 Atherosclerotic heart disease of native coronary artery without angina pectoris; I25.2 Old myocardial infarction; H91.90 Unspecified hearing loss, unspecified ear; R32 Unspecified urinary incontinence; R41.0 Disorientation, unspecified; Z79.02 Long term (current) use of antithrombotics/antiplatelets; Z79.899 Other long term (current) drug therapy; Z86.73 Personal history of transient ischemic attack (TIA), and cerebral infarction without residual deficits; Z91.128 Patient's intentional underdosing of medication regimen for other reason; Z82.49 Family history of ischemic heart disease and other diseases of the circulatory system; Z80.49 Family history of malignant neoplasm of other genital organs
CPT/HCPCS: 36410; 36415; 49083; 71045; 71046; 76705; 76937; 80048; 80053; 82140; 82150; 82805; 83605; 83690; 83735; 84100; 84300; 84484; 85025; 85610; 85730; 87070; 87077; 87186; 87205; 93005; 93306; 94002; 94003; 94640; 96372; 96374; 96375; 99285